=== PATIENT | female | born 1980 | race Hispanic/Latino ===

== ENCOUNTER 2017-01-30 20:11 | Emergency (ER) | payer BC, OTHER ==
[2017-01-30 20:40] VITALS: BP 120/86
[2017-01-30] MEDS ORDERED: ULTRAM PO ONE (20:44)
[2017-01-30] MEDS ORDERED: ULTRAM ONE (20:46)
--- NOTE | 2017-01-30 21:42 | Emergency Department Report ---
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 denies: weakness, numbness, suspects foreign body, heard/felt popping sensat - Related Data Previous Rx's Medication Instructions Recorded Last Taken Type Menthol [Biofreeze] 118 ml TP BID #1 gel..ml. 09/01/15 Unknown Rx traMADol [Ultram 50 MG tab] 50 mg PO Q6HR PRN #21 tablet 09/01/15 Unknown Rx traMADol [Ultram 50 MG tab] 50 mg PO Q6HR PRN #30 tablet 01/30/17 Unknown Rx Allergies Allergy/AdvReac Type Severity Reaction Status Date / Time No Known Allergies Allergy Unverified 09/01/15 18:09 ED Review of Systems ROS: Stated complaint: CRUSH INJURY RT THUMB Other details as noted in HPI Constitutional: denies: chills, fever Eyes: denies: eye pain, eye discharge, vision change ENT: denies: ear pain, throat pain Respiratory: denies: cough, shortness of breath, wheezing Cardiovascular: denies: chest pain, palpitations Endocrine: no symptoms reported Gastrointestinal: denies: abdominal pain, nausea, diarrhea Genitourinary: denies: urgency, dysuria, discharge Musculoskeletal: joint swelling (right thumb distal joint pain swelling ), myalgia. denies: back pain, arthralgia Skin: other (abrasion posterior thumb). denies: rash, lesions Neurological: denies: headache, weakness, paresthesias Psychiatric: denies: anxiety, depression Hematological/Lymphatic: denies: easy bleeding, easy bruising ED Past Medical Hx - Past Medical History Previous Medical History?: No - Surgical History Past Surgical History?: Yes Additional Surgical History: X 2 - Social History Smoking Status: Current Every Day Smoker Substance Use Type: None - Medications Home Medications: Home Medications Medication Instructions Recorded Confirmed Last Taken Type Menthol [Biofreeze] 118 ml TP BID #1 gel..ml. 09/01/15 Unknown Rx traMADol [Ultram 50 MG tab] 50 mg PO Q6HR PRN #21 tablet 09/01/15 Unknown Rx traMADol [Ultram 50 MG tab] 50 mg PO Q6HR PRN #30 tablet 01/30/17 Unknown Rx ED Physical Exam - General Limitations: No Limitations General appearance: alert, in no apparent distress - Head Head exam: Present: atraumatic, normocephalic - Eye Eye exam: Present: normal appearance - ENT ENT exam: Present: mucous membranes moist - Neck Neck exam: Present: normal inspection - Respiratory Respiratory exam: Present: normal lung sounds bilaterally. Absent: respiratory distress - Cardiovascular Cardiovascular Exam: Present: regular rate, normal rhythm. Absent: systolic murmur, diastolic murmur, rubs, gallop - GI/Abdominal GI/Abdominal exam: Present: soft, normal bowel sounds - Rectal Rectal exam: Present: deferred - Extremities Exam Extremities exam: Present: tenderness, joint swelling. Absent: pedal edema, calf tenderness - Expanded Upper Extremity Exam Right Forearm Wrist exam: Present: normal inspection, full ROM Hand Wrist exam: Present: tenderness (right thumb distal joint pain swelling ecchymosis, ), swelling, abrasion, ecchymosis. Absent: laceration, deformity, crepidus, dislocation, erythema, amputation, nail avulsion, subungual hematoma Neuro motor exam: Present: wrist extension intact, thumb opposition intact, thumb IP flexion intact, thumb adduction intact, fingers 2-5 abduction intact Neurosensory exam: Present: 2-point discrimination, radial nerve intact, ulnar nerve intact, median nerve intact Vascular: Present: normal capillary refill, radial pulse, brachial pulse, ulnar pulse. Absent: vascular compromise, Pallo, pulse deficit radial art, pulse deficit ulnar art, pulse deficit brachial art - Back Exam Back exam: Present: normal inspection - Neurological Exam Neurological exam: Present: alert, oriented X3 - Psychiatric Psychiatric exam: Present: normal affect, normal mood - Skin Skin exam: Present: warm, dry, intact, normal color. 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 Ennis ortho tramadol prn pain , pt verbalize agreement and understanding of discharge plan. Critical care attestation.: If time is entered above; I have spent that time in minutes in the direct care of this critically ill patient, excluding procedure time. ED Disposition Clinical Impression: Thumb sprain Qualifiers: Encounter type: initial encounter Sprain of finger site: interphalangeal joint Laterality: right Qualified Code(s): S63.621A - Sprain of interphalangeal joint of right thumb, initial encounter Disposition: TO HOME OR SELFCARE Is pt being admited?: No Does the pt Need Aspirin: No Condition: Good Instructions: Finger Sprain (ED) Prescriptions: traMADol [Ultram 50 MG tab] 50 mg PO Q6HR PRN #30 tablet PRN Reason: Pain Referrals: PRIMARY CAREMD [Primary Care Provider] - 3-5 Days ZIA ENNIS MD [Staff Physician] - 3-5 Days Forms: Work/School Release Form(ED) Time of Disposition: 21:49
--- NOTE | 2017-01-31 07:24 | XRay Report ---
RIGHT HAND RADIOGRAPHS INDICATION: 40 pound impact on right thumb. Pain, swelling. COMPARISON: None similar. FINDINGS: AP, lateral and oblique right hand radiographs demonstrate intact bones, joints and soft tissues. Small cyst may be present in the scaphoid and possibly the lunate, unchanged since August 2015 wrist radiographs. CONCLUSION: No acute right hand radiographic abnormality, as described. Please correlate. Thank you for the opportunity to participate in this patient's care.
== END 2017-01-30 21:55 | disposition home or self-care (01) ==
LOC: ED 20:11
DX: S63.621A Sprain of interphalangeal joint of right thumb, initial encounter (principal); F17.200 Nicotine dependence, unspecified, uncomplicated; X58.XXXA Exposure to other specified factors, initial encounter; Y93.89 Activity, other specified; Y99.8 Other external cause status; Y92.009 Unspecified place in unspecified non-institutional (private) residence as the place of occurrence of the external cause

== ENCOUNTER 2017-05-30 15:49 | Emergency (ER) | payer BC ==
--- NOTE | 2017-05-30 16:26 | Emergency Department Report ---
ED Back Pain/Injury HPI - General Chief Complaint: Back Pain/Injury Stated Complaint: LEFT SIDED BACK PAIN Time Seen by Provider: 05/30/17 16:13 Source: patient Limitations: No Limitations - History of Present Illness Initial Comments: 37-year-old female past medical history none presents with complaint of left- sided flank pain and left-sided rib pain status post mechanical fall at home this morning. 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 Patient complaining of bruising and exquisite pain to her left flank. Patient is awake alert and oriented 3 appears uncomfortable denies shortness of breath nausea or vomiting. States she has some abrasions to her left side. States that turning her trunk is painful. States she has visible bruise on left side flank. Denies any external bleeding. Denies any loss of consciousness associated with fall, reports no dizziness, headache or neck pain. Patient is ambulatory without assistance. Patient is a hospital employee. MD Complaint: back pain (A), back injury, fall -: This morning Place: home Severity: severe Severity scale (0 -10): 8 Quality: sharp, aching Consistency: constant Worsens With: movement Context: fall Associated Symptoms: denies other symptoms - Related Data Previous Rx's Medication Instructions Recorded Last Taken Type Menthol [Biofreeze] 118 ml TP BID #1 gel..ml. 09/01/15 Unknown Rx traMADol [Ultram 50 MG tab] 50 mg PO Q6HR PRN #21 tablet 09/01/15 Unknown Rx traMADol [Ultram 50 MG tab] 50 mg PO Q6HR PRN #30 tablet 01/30/17 Unknown Rx Bacitracin Zinc Oint [Antibiotic 1 applicatio TP BID #1 tube 05/30/17 Unknown Rx Oint] HYDROcodone/APAP 5-325 [[place] 1 each PO Q8H PRN #9 tablet 05/30/17 Unknown Rx 5/325] Ibuprofen [Motrin] 600 mg PO Q8H PRN #30 tablet 05/30/17 Unknown Rx Allergies Allergy/AdvReac Type Severity Reaction Status Date / Time No Known Allergies Allergy Unverified 09/01/15 18:09 ED Review of Systems ROS: Stated complaint: LEFT SIDED BACK PAIN Other details as noted in HPI Constitutional: denies: chills, fever Eyes: denies: eye pain, eye discharge, vision change ENT: denies: ear pain, throat pain Respiratory: denies: cough, shortness of breath, wheezing Cardiovascular: denies: chest pain, palpitations Endocrine: no symptoms reported Gastrointestinal: denies: abdominal pain, nausea, diarrhea Genitourinary: denies: urgency, dysuria, discharge Musculoskeletal: as per HPI. denies: back pain, joint swelling, arthralgia Skin: denies: rash, lesions Neurological: denies: headache, weakness, paresthesias Psychiatric: denies: anxiety, depression Hematological/Lymphatic: denies: easy bleeding, easy bruising ED Past Medical Hx - Past Medical History Previous Medical History?: No - Surgical History Past Surgical History?: Yes Additional Surgical History: X 2 - Social History Smoking Status: Current Every Day Smoker Substance Use Type: None - Medications Home Medications: Home Medications Medication Instructions Recorded Confirmed Last Taken Type Menthol [Biofreeze] 118 ml TP BID #1 gel..ml. 09/01/15 Unknown Rx traMADol [Ultram 50 MG tab] 50 mg PO Q6HR PRN #21 tablet 09/01/15 Unknown Rx traMADol [Ultram 50 MG tab] 50 mg PO Q6HR PRN #30 tablet 01/30/17 Unknown Rx Bacitracin Zinc Oint [Antibiotic 1 applicatio TP BID #1 tube 05/30/17 Unknown Rx Oint] HYDROcodone/APAP 5-325 [[place] 1 each PO Q8H PRN #9 tablet 05/30/17 Unknown Rx 5/325] Ibuprofen [Motrin] 600 mg PO Q8H PRN #30 tablet 05/30/17 Unknown Rx ED Physical Exam - General Limitations: No Limitations General appearance: alert, in no apparent distress - Head Head exam: Present: atraumatic, normocephalic - Eye Eye exam: Present: normal appearance, PERRL, EOMI - ENT ENT exam: Present: mucous membranes moist - Neck Neck exam: Present: normal inspection - Respiratory Respiratory exam: Present: normal lung sounds bilaterally, chest wall tenderness (patient has a left sided chest wall tenderness along the left mid axillary line along costal margin with visible contusion approximately 8-9 cm in length. Pain radiates along the left midaxillary line. No other visible chest wall ecchymosis. Some small superficial abrasions overlying this area.). Absent: respiratory distress - Cardiovascular Cardiovascular Exam: Present: regular rate, normal rhythm. Absent: systolic murmur, diastolic murmur, rubs, gallop - GI/Abdominal GI/Abdominal exam: Present: soft (no anterior abdominal wall tenderness negative tenderness 4 quadrants), normal bowel sounds - Extremities Exam Extremities exam: Present: normal inspection - Back Exam Back exam: Present: normal inspection, full ROM, CVA tenderness (L) (positive left-sided flank tenderness) - Neurological Exam Neurological exam: Present: alert, oriented X3, CN II-XII intact, normal gait - Psychiatric Psychiatric exam: Present: normal affect, normal mood - Skin Skin exam: Present: warm, dry, intact, normal color. Absent: rash ED Course Vital Signs 05/30/17 05/30/17 15:56 19:15 Temperature 98 F Pulse Rate 70 55 L Respiratory 20 16 Rate Blood Pressure 110/85 Blood Pressure 116/75 [Left] O2 Sat by Pulse 97 100 Oximetry ED Medical Decision Making - Lab Data Result diagrams: 05/30/17 16:43 05/30/17 16:43 - Medical Decision Making A/P: left sided chest wall 1-FAST Scan negative at bedside for fluid collection in renal-splenic. Finding reported to Dr. uLgo 2-CT chest and abdomen negative for any internal hemorrhage splenic trauma or rib fractures. Blood work and urinalysis unremarkable 3-case discussed with ED attending also examined patient 4- short course of motrin and [place] when necessary. Critical care attestation.: If time is entered above; I have spent that time in minutes in the direct care of this critically ill patient, excluding procedure time. ED Disposition Clinical Impression: Contusion of rib on left side Qualifiers: Encounter type: initial encounter Qualified Code(s): S20.212A - Contusion of left front wall of thorax, initial encounter Fall with injury Qualifiers: Encounter type: initial encounter Qualified Code(s): W19.XXXA - Unspecified fall, initial encounter Disposition: - TO HOME OR SELFCARE Is pt being admited?: No Does the pt Need Aspirin: No Condition: Stable Instructions: Contusion in Adults (ED) Prescriptions: Bacitracin Zinc Oint [Antibiotic Oint] 1 applicatio TP BID #1 tube HYDROcodone/APAP 5-325 [[place] 5/325] 1 each PO Q8H PRN #9 tablet PRN Reason: Pain Ibuprofen [Motrin] 600 mg PO Q8H PRN #30 tablet PRN Reason: Pain Referrals: PRIMARY CARE,MD [Primary Care Provider] - 3-5 Days Forms: Accompanied Note, Work/School Release Form(ED) Time of Disposition: 19:57
[2017-05-30] MEDS ORDERED: MORPHINE IV ONE ×2 (16:38→19:11)
[2017-05-30] MEDS ORDERED: ZOFRAN IV ONE (16:38)
[2017-05-30] MEDS ORDERED: NACL 0.9% 500 ML 500 ML IV ONE (16:38)
[2017-05-30 16:45] LABS: Bilirubin,Urine NEG (Negative); Blood,Urine NEG (Negative); Ketones,Urine NEG (Negative); Leukocyte Esterase,Urine NEG (Negative); Nitrite,Urine NEG (Negative); Protein,Urine <15 mg/dL mg/dL (Negative); Urobilinogen,Urine < 2.0 mg/dL (<2.0)
[2017-05-30 16:47] LABS: RBC,Urine < 1.0 /HPF (0.0-6.0)
[2017-05-30 17:01] LABS: Basophils % (Auto) 0.4 % (0.0-1.8); Eosinophils % (Auto) 1.8 % (0.0-4.3); Hematocrit 34.9 % (30.3-42.9); Hemoglobin 11.9 gm/dl (10.1-14.3); Mean Corpuscular HGB Conc 34 % (30-34); Mean Corpuscular Hemoglobin 30 pg (28-32); Mean Corpuscular Volume 88 fl (79-97); Platelet Count 242 K/mm3 (140-440); Red Blood Count 3.97 M/mm3 (3.65-5.03); Red Cell Distribution Width 13.3 % (13.2-15.2); White Blood Count 6.5 K/mm3 (4.5-11.0)
[2017-05-30 17:10] LABS: INR 0.94 (0.87-1.13)
[2017-05-30 17:18] LABS: Anion Gap 18 mmol/L; BUN/Creatinine Ratio 19; Blood Urea Nitrogen 17 mg/dL (7-17); Carbon Dioxide 27 mmol/L (22-30); Chloride 100.4 mmol/L (98-107); Glucose 84 mg/dL (65-100); Potassium 3.7 mmol/L (3.6-5.0); Sodium 142 mmol/L (137-145)
[2017-05-30 19:24] VITALS: BP 116/75
--- NOTE | 2017-05-30 19:25 | Cat Scan Report ---
FINAL REPORT PROCEDURE: CT CHEST W CON TECHNIQUE: Computerized axial tomography of the chest was performed during the IV injection of iodinated nonionic contrast. HISTORY: ? left side rib or splenic injury s/p fall COMPARISON: No prior studies are available for comparison. TECHNICAL QUALITY: Satisfactory. FINDINGS: Heart and pericardium: Normal. Thoracic aorta: Normal. Pulmonary vasculature: Normal. Lymph nodes: No enlarged thoracic lymph nodes. Lungs: Normal. Pleural space: No effusion, thickening, or pneumothorax. Musculoskeletal structures: No significant abnormality. Upper abdominal structures: Fatty infiltration liver. Low attenuated probable cyst in the upper liver which can be confirmed by ultrasound if warranted. IMPRESSION: No acute posttraumatic pathology. Specifically no spleen injury or rib fracture
--- NOTE | 2017-05-30 19:31 | Cat Scan Report ---
FINAL REPORT PROCEDURE: CT ABDOMEN PELVIS W CON TECHNIQUE: Computerized axial tomography of the abdomen and pelvis was performed after the IV injection of iodinated nonionic contrast. HISTORY: ? left side rib or splenic injury s/p fall COMPARISON: CT chest today FINDINGS: Visualized lower thorax: No significant abnormality. Liver: Diffuse fatty infiltration liver with small low attenuated lesions likely small cyst left lobe. Spleen: Normal size and attenuation. Gallbladder and biliary system: Normal. Pancreas: Normal. Adrenals: Normal. Kidneys: Normal. GI tract: Normal. Lymph nodes and mesentery: Normal. Vasculature: Normal. Bladder: Normal. Reproductive organs: Heterogeneous uterus with low attenuated cysts in the adnexa Peritoneum: No free fluid. Musculoskeletal structures: No significant abnormality. Other: None. IMPRESSION: No acute posttraumatic pathology. Specifically no splenic injury or rib fracture left lower chest.
== END 2017-05-30 20:11 | disposition home or self-care (01) ==
LOC: ED 15:49
DX: S20.212A Contusion of left front wall of thorax, initial encounter (principal); M54.9 Dorsalgia, unspecified; F17.200 Nicotine dependence, unspecified, uncomplicated; W01.198A Fall on same level from slipping, tripping and stumbling with subsequent striking against other object, initial encounter; Y93.89 Activity, other specified; Y92.89 Other specified places as the place of occurrence of the external cause; Y99.8 Other external cause status
CPT/HCPCS: 36415; 71260; 74177; 80048; 81001; 81025; 85025; 85610; 86850; 86900; 86901; 96361; 96374; 96375; 96376; 99284; J2270; J2405; J7040; Q9967

== ENCOUNTER 2018-09-07 10:21 | Emergency (ER) | payer OTHER, BC ==
[2018-09-07 10:30] VITALS: BP 117/81
[2018-09-07] MEDS ORDERED: IBUPROFEN PO ONE (10:35)
--- NOTE | 2018-09-07 10:40 | Emergency Department Report ---
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 Patient complains of pain on both sides of her knee and just inferior to the patella since the incident. Pain increases with weightbearing Location: Right knee Duration: Constant since yesterday Quality: Pain Severity: Moderate Modifying factors: [see above] Context: [see above] Mode of transportation: [not driving] ED Past Medical Hx - Past Medical History Previous Medical History?: Yes Additional medical history: hypothyroid - Surgical History Past Surgical History?: Yes Additional Surgical History: X 2 - Family History Family history: no significant - Social History Smoking Status: Never Smoker Substance Use Type: None - Medications Home Medications: Home Medications Medication Instructions Recorded Confirmed Last Taken Type Menthol [Biofreeze] 118 ml TP BID #1 gel..ml. 09/01/15 Unknown Rx traMADol [Ultram 50 MG tab] 50 mg PO Q6HR PRN #21 tablet 09/01/15 Unknown Rx traMADol [Ultram 50 MG tab] 50 mg PO Q6HR PRN #30 tablet 01/30/17 Unknown Rx Bacitracin Zinc Oint [Antibiotic 1 applicatio TP BID #1 tube 05/30/17 Unknown Rx Oint] HYDROcodone/APAP 5-325 [[place] 1 each PO Q8H PRN #9 tablet 05/30/17 Unknown Rx 5/325] Ibuprofen [Motrin] 600 mg PO Q8H PRN #30 tablet 05/30/17 Unknown Rx HYDROcodone/APAP 5-325 [[place] 1 each PO Q6HR PRN #10 tablet 09/07/18 Unknown Rx 5/325] Ibuprofen [Motrin 800 MG tab] 800 mg PO Q8HR PRN #20 tablet 09/07/18 Unknown Rx ED Review of Systems ROS: Stated complaint: RT KNEE PAIN Other details as noted in HPI Constitutional: no symptoms reported Respiratory: no symptoms reported Endocrine: no symptoms reported Musculoskeletal: arthralgia Physical Exam - Physical Exam Vital Signs: Vital Signs 09/07/18 10:21 Temperature 98.1 F Pulse Rate 61 Respiratory 20 Rate Blood Pressure 117/81 O2 Sat by Pulse 100 Oximetry Physical Exam: GENERAL: The patient is well-developed well-nourished female sitting on stretcher using cellphone not appearing to be in acute distress. [] HEENT: Normocephalic. Atraumatic. NECK: Trachea midline CHEST/LUNGS: There is no respiratory distress noted. SKIN: There is no rash. There is no edema. There is no diaphoresis. NEURO: The patient is awake, alert, and oriented. The patient is cooperative. The patient has normal speech MUSCULOSKELETAL: There is pain to the medial aspect of the right knee with varus and valgus stress. No laxity of the right knee appreciated. There is no evidence of acute injury. ED Course Vital Signs 09/07/18 10:21 Temperature 98.1 F Pulse Rate 61 Respiratory 20 Rate Blood Pressure 117/81 O2 Sat by Pulse 100 Oximetry ED Medical Decision Making - Radiology Data Radiology results: image reviewed (right knee x-ray) interpreted by me: Right knee x-ray-no acute fracture - Differential Diagnosis knee sprain, meniscus tear, medial collateral ligament injury Critical care attestation.: If time is entered above; I have spent that time in minutes in the direct care of this critically ill patient, excluding procedure time. ED Disposition Clinical Impression: Acute pain of right knee Disposition: DC-01 TO HOME OR SELFCARE Is pt being admited?: No Does the pt Need Aspirin: No Condition: Stable Instructions: Arthralgia (ED) Additional Instructions: Return to the emergency department immediately should you develop worsening symptoms, fever, inability to tolerate food or liquid or any other concerns. Prescriptions: Ibuprofen [Motrin 800 MG tab] 800 mg PO Q8HR PRN #20 tablet PRN Reason: Pain, Moderate (4-6) HYDROcodone/APAP 5-325 [[place] 5/325] 1 each PO Q6HR PRN #10 tablet PRN Reason: Pain Referrals: ZIA ENNIS MD [Staff Physician] - 3-5 Days (Dr. Ennis is an orthopedic surgeon. Please follow up with him for further evaluation) Time of Disposition: 10:55
--- NOTE | 2018-09-07 10:55 | XRay Report ---
RIGHT KNEE, 3 views: History: Pain. The bony architecture is intact without evidence of fracture or dislocation. No significant soft tissue abnormality is seen. IMPRESSION: Normal right knee.
== END 2018-09-07 11:18 | disposition home or self-care (01) ==
LOC: ED 10:21
DX: M25.561 Pain in right knee (principal); E03.9 Hypothyroidism, unspecified
CPT/HCPCS: 99283

== ENCOUNTER 2018-09-30 11:00 | Outpatient (CLI) | payer BC ==
--- NOTE | 2018-09-30 14:27 | Magnetic Resonance Report ---
MR LOWER EXTREMITY JOINT RIGHT WITHOUT CONTRAST History: Pain in right knee. Technique: Multisequence, multiplanar MRI without IV contrast. FINDINGS: The bone marrow signal is within normal limits. No evidence for fracture, osteochondral defect or bone lesion. Intra-articular cartilage appears intact and normal thickness. The medial and lateral menisci are intact. No degeneration or tear. The ACL, PCL, MCL, LCL complex and extensor complex are intact. No significant joint effusion or popliteal cyst. IMPRESSION: Unremarkable MRI of the right knee. No clear explanation for right knee pain.
== END 2018-09-30 11:01 | disposition home or self-care (01) ==
LOC: MRI 11:00
PROVIDERS: ATTEND Orthopaedic Surgery
DX: M25.561 Pain in right knee (principal)
CPT/HCPCS: 73721

== ENCOUNTER 2019-03-12 13:49 | Outpatient (CLI) | payer BC | END 2019-03-12 13:50 | disposition home or self-care (01) | LOC: LAB 13:49 | PROVIDERS: ATTEND Internal Medicine | DX: E03.9 Hypothyroidism, unspecified (principal) | CPT/HCPCS: 36415; 84436; 84443 ==

== ENCOUNTER 2019-05-01 11:28 | Emergency (ER) | payer SELFPAY ==
[2019-05-01] MEDS ORDERED: MORPHINE 4 MG/1 ML INJ IV ONE (12:00)
[2019-05-01] MEDS ORDERED: ONDANSETRON 4 MG/2 ML INJ IV ONE (12:00)
--- NOTE | 2019-05-01 12:06 | Emergency Department Report ---
<MARYANN HENRY - Last Filed: 05/01/19 15:34> ED Fall HPI - General Chief Complaint: Fall Stated Complaint: FALL Time Seen by Provider: 05/01/19 11:59 - Related Data Previous Rx's Medication Instructions Recorded Last Taken Type Menthol [Biofreeze] 118 ml TP BID #1 gel..ml. 09/01/15 Unknown Rx traMADoL [Ultram 50 MG tab] 50 mg PO Q6HR PRN #21 tablet 09/01/15 Unknown Rx traMADoL [Ultram 50 MG tab] 50 mg PO Q6HR PRN #30 tablet 01/30/17 Unknown Rx Bacitracin Zinc Oint [Antibiotic 1 applicatio TP BID #1 tube 05/30/17 Unknown Rx Oint] HYDROcodone/APAP 5-325 [[place] 1 each PO Q8H PRN #9 tablet 05/30/17 Unknown Rx 5/325] Ibuprofen [Motrin] 600 mg PO Q8H PRN #30 tablet 05/30/17 Unknown Rx HYDROcodone/APAP 5-325 [[place] 1 each PO Q6HR PRN #10 tablet 09/07/18 Unknown Rx 5/325] Ibuprofen [Motrin 800 MG tab] 800 mg PO Q8HR PRN #20 tablet 09/07/18 Unknown Rx Ondansetron [Zofran Odt] 4 mg PO Q8HR PRN #14 tab.rapdis 05/01/19 Unknown Rx traMADoL [Ultram 50 MG tab] 50 mg PO Q4HR PRN #14 tablet 05/01/19 Unknown Rx Allergies Allergy/AdvReac Type Severity Reaction Status Date / Time No Known Allergies Allergy Verified 09/07/18 10:29 ED Past Medical Hx - Medications Home Medications: Home Medications Medication Instructions Recorded Confirmed Last Taken Type Menthol [Biofreeze] 118 ml TP BID #1 gel..ml. 09/01/15 Unknown Rx traMADoL [Ultram 50 MG tab] 50 mg PO Q6HR PRN #21 tablet 09/01/15 Unknown Rx traMADoL [Ultram 50 MG tab] 50 mg PO Q6HR PRN #30 tablet 01/30/17 Unknown Rx Bacitracin Zinc Oint [Antibiotic 1 applicatio TP BID #1 tube 05/30/17 Unknown Rx Oint] HYDROcodone/APAP 5-325 [[place] 1 each PO Q8H PRN #9 tablet 05/30/17 Unknown Rx 5/325] Ibuprofen [Motrin] 600 mg PO Q8H PRN #30 tablet 05/30/17 Unknown Rx HYDROcodone/APAP 5-325 [[place] 1 each PO Q6HR PRN #10 tablet 09/07/18 Unknown Rx 5/325] Ibuprofen [Motrin 800 MG tab] 800 mg PO Q8HR PRN #20 tablet 09/07/18 Unknown Rx Ondansetron [Zofran Odt] 4 mg PO Q8HR PRN #14 tab.rapdis 05/01/19 Unknown Rx traMADoL [Ultram 50 MG tab] 50 mg PO Q4HR PRN #14 tablet 05/01/19 Unknown Rx ED Course - Reevaluation(s) Reevaluation #1: 05/01/19 15:34 Resting comfortably in stretcher and in no acute distress. Currently playing on a cellular phone. CT scan abdomen pelvis negative for acute disease. Vital signs, laboratory studies, imaging studies reviewed Patient counseled that she'll likely be sore over the next few days. Suitable for discharge at this point in time. ED Medical Decision Making - Lab Data Result diagrams: 05/01/19 12:45 05/01/19 12:45 Vital Signs 05/01/19 05/01/19 11:32 12:06 Temperature 98.3 F 97.8 F Pulse Rate 84 65 Respiratory 18 17 Rate Blood Pressure 136/86 Blood Pressure 118/78 [Left] O2 Sat by Pulse 97 96 Oximetry Lab Results 05/01/19 05/01/19 05/01/19 Range/Units 12:45 12:45 12:45 WBC 6.2 (4.5-11.0) K/mm3 RBC 4.83 (3.65-5.03) M/mm3 Hgb 13.4 (10.1-14.3) gm/dl Hct 39.9 (30.3-42.9) % MCV 83 (79-97) fl MCH 28 (28-32) pg MCHC 34 (30-34) % RDW 13.7 (13.2-15.2) % Plt Count 258 (140-440) K/mm3 Lymph % (Auto) 27.1 (13.4-35.0) % [place] % (Auto) 10.7 H (0.0-7.3) % Eos % (Auto) 3.6 (0.0-4.3) % Baso % (Auto) 0.5 (0.0-1.8) % Lymph # 1.7 (1.2-5.4) K/mm3 [place] # 0.7 (0.0-0.8) K/mm3 Eos # 0.2 (0.0-0.4) K/mm3 Baso # 0.0 (0.0-0.1) K/mm3 Seg Neutrophils % 58.1 (40.0-70.0) % Seg Neutrophils # 3.6 (1.8-7.7) K/mm3 Sodium 141 (137-145) mmol/L Potassium 3.8 (3.6-5.0) mmol/L Chloride 106.2 (98-107) mmol/L Carbon Dioxide 19 L (22-30) mmol/L Anion Gap 20 mmol/L BUN 19 H (7-17) mg/dL Creatinine 0.6 L (0.7-1.2) mg/dL Estimated GFR > 60 ml/min BUN/Creatinine Ratio 32 % Glucose 108 H (65-100) mg/dL Calcium 9.5 (8.4-10.2) mg/dL Total Bilirubin 0.20 (0.1-1.2) mg/dL Direct Bilirubin < 0.2 (0-0.2) mg/dL Indirect Bilirubin 0.0 mg/dL AST 15 (5-40) units/L ALT 10 (7-56) units/L Alkaline Phosphatase 70 (35-129) units/L Total Protein 7.3 (6.3-8.2) g/dL Albumin 4.5 (3.9-5) g/dL Albumin/Globulin Ratio 1.6 % HCG, Qual Negative (Negative) - Radiology Data Radiology results: report reviewed, image reviewed ED Disposition Clinical Impression: Abdominal contusion, Fall, Chest wall contusion Disposition: TO HOME OR SELFCARE Condition: Stable Instructions: Contusion in Adults (ED), Fall Prevention (ED) Prescriptions: traMADoL [Ultram 50 MG tab] 50 mg PO Q4HR PRN #14 tablet PRN Reason: Pain Ondansetron [Zofran Odt] 4 mg PO Q8HR PRN #14 tab.rapdis PRN Reason: Nausea And Vomiting Referrals: PRIMARY CARE, [Primary Care Provider] - 3-5 Days Forms: Work/School Release Form(ED) <BARRETT LIN - Last Filed: 05/02/19 17:56> ED Fall HPI - General Source: patient Mode of arrival: Wheelchair - History of Present Illness Initial Comments: Patient is 39 years old female with no significant past medical history except for hypothyroidism. Patient presented to the ER from medical floor for evaluation after a fall. 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 Patient complaining off right lower chest and upper abdominal pain. Patient denied any head injury, neck injury. She also denied any loss of consciousness. No other complaint. Complaint: fall -: This morning Fall From: standing When Fall Occurred: just prior to arrival Fall Witnessed: yes, by bystander Place Fall Occurred: work Loss of Consciousness: none Prolonged Down Time?: no Symptoms Prior to Fall: none Location: chest, abdomen Severity: moderate Severity scale (0 -10): 5 Quality: sharp Context: other ED Review of Systems ROS: Stated complaint: FALL Other details as noted in HPI Comment: All other systems reviewed and negative Constitutional: denies: chills, fever Respiratory: denies: cough, shortness of breath, SOB with exertion Cardiovascular: chest pain. denies: palpitations, dyspnea on exertion, orthopnea Gastrointestinal: abdominal pain. denies: nausea, vomiting, diarrhea, constipation, hematemesis, melena, hematochezia Genitourinary: denies: dysuria Musculoskeletal: denies: back pain Neurological: denies: headache, weakness, numbness, paresthesias, confusion ED Past Medical Hx - Past Medical History Additional medical history: hypothyroid - Surgical History Additional Surgical History: X 2 - Social History Smoking Status: Never Smoker Substance Use Type: None ED Physical Exam - General Limitations: No Limitations General appearance: alert, in no apparent distress - Head Head exam: Present: atraumatic, normocephalic, normal inspection - Eye Eye exam: Present: normal appearance, PERRL - ENT ENT exam: Present: normal exam, normal orophraynx, mucous membranes moist - Neck Neck exam: Present: normal inspection, full ROM. Absent: tenderness, meningismus, lymphadenopathy, thyromegaly - Respiratory Respiratory exam: Present: normal lung sounds bilaterally, chest wall tenderness (right lower chest tenderness). Absent: respiratory distress, wheezes, rales, rhonchi, accessory muscle use, decreased breath sounds, prolonged expiratory - Cardiovascular Cardiovascular Exam: Present: regular rate, normal rhythm, normal heart sounds - GI/Abdominal GI/Abdominal exam: Present: soft, tenderness (right upper quadrant tenderness), normal bowel sounds. Absent: distended, guarding, rebound, rigid, organomegaly, mass, bruit, pulsatile mass, hernia - Extremities Exam Extremities exam: Present: normal inspection, full ROM, normal capillary refill. Absent: pedal edema, calf tenderness - Back Exam Back exam: Present: normal inspection, full ROM. Absent: CVA tenderness (R), CVA tenderness (L), muscle spasm, paraspinal tenderness, vertebral tenderness - Neurological Exam Neurological exam: Present: alert, oriented X3, CN II-XII intact, normal gait, reflexes normal. Absent: motor sensory deficit - Skin Skin exam: Present: warm, intact, normal color ED Course Vital Signs 05/01/19 05/01/19 05/01/19 11:32 12:06 14:00 Temperature 98.3 F 97.8 F Pulse Rate 84 65 59 L Respiratory 18 17 18 Rate Blood Pressure 136/86 Blood Pressure 118/78 120/79 [Left] O2 Sat by Pulse 97 96 100 Oximetry 05/01/19 05/01/19 15:00 16:00 Temperature Pulse Rate 58 L 60 Respiratory 18 17 Rate Blood Pressure Blood Pressure 105/67 115/68 [Left] O2 Sat by Pulse 98 99 Oximetry ED Medical Decision Making - Lab Data Result diagrams: 05/01/19 12:45 05/01/19 12:45 Critical care attestation.: If time is entered above; I have spent that time in minutes in the direct care o f this critically ill patient, excluding procedure time. ED Disposition Is pt being admited?: No
[2019-05-01 13:22] LABS: Basophils % (Auto) 0.5 % (0.0-1.8); Eosinophils # (Auto) 0.2 K/mm3 (0.0-0.4); Eosinophils % (Auto) 3.6 % (0.0-4.3); Hematocrit 39.9 % (30.3-42.9); Hemoglobin 13.4 gm/dl (10.1-14.3); Lymphocytes # (Auto) 1.7 K/mm3 (1.2-5.4); Lymphocytes % (Auto) 27.1 % (13.4-35.0); Mean Corpuscular HGB Conc 34 % (30-34); Mean Corpuscular Volume 83 fl (79-97); Monocytes # (Auto) 0.7 K/mm3 (0.0-0.8); Monocytes % (Auto) 10.7 % (0.0-7.3); Platelet Count 258 K/mm3 (140-440); Red Blood Count 4.83 M/mm3 (3.65-5.03); Red Cell Distribution Width 13.7 % (13.2-15.2)
[2019-05-01 13:39] LABS: Alanine Aminotransferase 10 units/L (7-56); Albumin 4.5 g/dL (3.9-5); BUN/Creatinine Ratio 32; Blood Urea Nitrogen 19 mg/dL (7-17); Calcium 9.5 mg/dL (8.4-10.2); Hemolysis Index 7
[2019-05-01 13:45] LABS: Bilirubin,Direct < 0.2 mg/dL (0-0.2)
--- NOTE | 2019-05-01 14:24 | XRay Report ---
RIGHT RIBS 5 VIEWS INDICATION / CLINICAL INFORMATION: CHEST PAIN,S/P FALL. COMPARISON: None available. FINDINGS: RIBS: No acute, displaced fracture or other acute abnormality. LUNGS: No acute finding. No pneumothorax. Signer Name: Miah Ortiz MD Signed: 05/01/2019 2:19 PM Workstation Name: [id number]
--- NOTE | 2019-05-01 15:32 | Cat Scan Report ---
CT ABDOMEN AND PELVIS WITH CONTRAST INDICATION: RUQ PAIN, S/P FALL. COMPARISON: CT abdomen and pelvis with contrast from 05/30/2017. TECHNIQUE: Axial, coronal and sagittal CT imaging of the abdomen and pelvis was performed after inje ction of 100 mL Omnipaque [address] scans at this location are performed using CT dose re duction for ALARA by means of automated exposure control. FINDINGS: LOWER CHEST: No significant abnormality. LIVER: There is a subcentimeter probable cyst located laterally along the hepatic dome. No additional significant abnormality is seen. BILIARY: No significant abnormality. PANCREAS: No significant abnormality. SPLEEN: No significant abnormality. ADRENALS: No significant abnormality. KIDNEYS AND URETERS: No significant abnormality. GI TRACT: No significant abnormality of the stomach, small bowel or colon. Unremarkable appendix. PERITONEUM: A small amount of free fluid is seen along the pelvis and is likely physiologic. No free air. No fluid collection. LYMPH NODES: No significant adenopathy. VASCULATURE: No significant abnormality. URINARY BLADDER: No significant abnormality. REPRODUCTIVE ORGANS: No significant abnormality. ADDITIONAL FINDINGS: None. SKELETAL SYSTEM: No significant abnormality. IMPRESSION: No acute abnormality of the abdomen or pelvis. Signer Name: Albreto Castaneda MD Signed: 05/01/2019 3:28 PM Workstation Name: [id number]
[2019-05-01 16:13] VITALS: BP 115/68
== END 2019-05-01 16:14 | disposition home or self-care (01) ==
LOC: ED 11:28
DX: S30.1XXA Contusion of abdominal wall, initial encounter (principal); S20.211A Contusion of right front wall of thorax, initial encounter; E03.9 Hypothyroidism, unspecified; Z98.890 Other specified postprocedural states; Z79.899 Other long term (current) drug therapy; W19.XXXA Unspecified fall, initial encounter; Y93.89 Activity, other specified; Y92.89 Other specified places as the place of occurrence of the external cause; Y99.8 Other external cause status
CPT/HCPCS: 36415; 71101; 74177; 80048; 80076; 84703; 85025; 96374; 96375; 99284; J2270; J2405; Q9967

== ENCOUNTER 2019-10-28 16:35 | Emergency (ER) | payer SELFPAY ==
[2019-10-28 16:44] VITALS: BP 123/88
[2019-10-28] MEDS ORDERED: KETOROLAC 60 MG/2 ML INJ IM ONE (16:53)
[2019-10-28] MEDS ORDERED: predniSONE 20 MG TAB PO ONE (16:53)
--- NOTE | 2019-10-28 17:14 | Emergency Department Report ---
ED Upper Extremity Inj HPI - General Chief Complaint: Extremity Injury, Upper Stated Complaint: WORKPLACE INJURY, RT. SHOULDER Time Seen by Provider: 10/28/19 16:49 Source: patient Mode of arrival: Ambulatory Limitations: No Limitations - History of Present Illness Initial Comments: This is a 39-year-old female nontoxic, well nourished in appearance, no acute signs of distress presents to the ED with c/o of right shoulder pain. 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 Patient denies any trauma. Patient denies any numbness, tingling, fever, chills, nausea, vomiting, chest pain, shortness of breath, headache, stiff neck. Patient denies any joint swelling or joint redness. Patient agrees to some decreased range of motion due to pain. Patient denies any allergies or significant past medical history. MD Complaint: Injury to:: right, shoulder -: This afternoon Other Extremity Injury: Shoulder: Right Other Injuries: none Place: work Severity scale (0 -10): 8 Improves With: immobilization Worsens With: movement of extremity Associated Symptoms: denies other symptoms. denies: weakness, numbness, neck pain, suspects foreign body, nausea/vomiting, heard/felt popping sensat - Related Data Previous Rx's Medication Instructions Recorded Last Taken Type Menthol [Biofreeze] 118 ml TP BID #1 gel..ml. 09/01/15 Unknown Rx traMADoL [Ultram 50 MG tab] 50 mg PO Q6HR PRN #21 tablet 09/01/15 Unknown Rx traMADoL [Ultram 50 MG tab] 50 mg PO Q6HR PRN #30 tablet 01/30/17 Unknown Rx Bacitracin Zinc Oint [Antibiotic 1 applicatio TP BID #1 tube 05/30/17 Unknown Rx Oint] HYDROcodone/APAP 5-325 [[place] 1 each PO Q8H PRN #9 tablet 05/30/17 Unknown Rx 5/325] Ibuprofen [Motrin] 600 mg PO Q8H PRN #30 tablet 05/30/17 Unknown Rx HYDROcodone/APAP 5-325 [[place] 1 each PO Q6HR PRN #10 tablet 09/07/18 Unknown Rx 5/325] Ibuprofen [Motrin 800 MG tab] 800 mg PO Q8HR PRN #20 tablet 09/07/18 Unknown Rx Ondansetron [Zofran Odt] 4 mg PO Q8HR PRN #14 tab.rapdis 05/01/19 Unknown Rx traMADoL [Ultram 50 MG tab] 50 mg PO Q4HR PRN #14 tablet 05/01/19 Unknown Rx Cyclobenzaprine [Flexeril] 10 mg PO QHS PRN #10 tablet 10/28/19 Unknown Rx Naproxen 500 mg PO Q12H PRN #20 tablet 10/28/19 Unknown Rx Allergies Allergy/AdvReac Type Severity Reaction Status Date / Time No Known Allergies Allergy Verified 09/07/18 10:29 ED Review of Systems ROS: Stated complaint: WORKPLACE INJURY, RT. SHOULDER Other details as noted in HPI Constitutional: denies: chills, fever Eyes: denies: eye pain, eye discharge, vision change ENT: denies: ear pain, throat pain Respiratory: denies: cough, shortness of breath, wheezing Cardiovascular: denies: chest pain, palpitations Endocrine: no symptoms reported Gastrointestinal: denies: abdominal pain, nausea, diarrhea Genitourinary: denies: urgency, dysuria, discharge Musculoskeletal: arthralgia. denies: back pain, joint swelling Skin: denies: rash, lesions Neurological: denies: headache, weakness, paresthesias Psychiatric: denies: anxiety, depression Hematological/Lymphatic: denies: easy bleeding, easy bruising ED Past Medical Hx - Past Medical History Previous Medical History?: Yes Hx Psychiatric Treatment: Yes (Depression) Additional medical history: hypothyroid - Surgical History Past Surgical History?: Yes Additional Surgical History: X 2 - Social History Smoking Status: Former Smoker Substance Use Type: None - Medications Home Medications: Home Medications Medication Instructions Recorded Confirmed Last Taken Type Menthol [Biofreeze] 118 ml TP BID #1 gel..ml. 09/01/15 Unknown Rx traMADoL [Ultram 50 MG tab] 50 mg PO Q6HR PRN #21 tablet 09/01/15 Unknown Rx traMADoL [Ultram 50 MG tab] 50 mg PO Q6HR PRN #30 tablet 01/30/17 Unknown Rx Bacitracin Zinc Oint [Antibiotic 1 applicatio TP BID #1 tube 05/30/17 Unknown Rx Oint] HYDROcodone/APAP 5-325 [[place] 1 each PO Q8H PRN #9 tablet 05/30/17 Unknown Rx 5/325] Ibuprofen [Motrin] 600 mg PO Q8H PRN #30 tablet 05/30/17 Unknown Rx HYDROcodone/APAP 5-325 [[place] 1 each PO Q6HR PRN #10 tablet 09/07/18 Unknown Rx 5/325] Ibuprofen [Motrin 800 MG tab] 800 mg PO Q8HR PRN #20 tablet 09/07/18 Unknown Rx Ondansetron [Zofran Odt] 4 mg PO Q8HR PRN #14 tab.rapdis 05/01/19 Unknown Rx traMADoL [Ultram 50 MG tab] 50 mg PO Q4HR PRN #14 tablet 05/01/19 Unknown Rx Cyclobenzaprine [Flexeril] 10 mg PO QHS PRN #10 tablet 10/28/19 Unknown Rx Naproxen 500 mg PO Q12H PRN #20 tablet 10/28/19 Unknown Rx ED Physical Exam - General Limitations: No Limitations General appearance: alert, in no apparent distress - Head Head exam: Present: atraumatic, normocephalic - Extremities Exam Extremities exam: Present: normal inspection, full ROM, tenderness, normal capillary refill. Absent: joint swelling - Expanded Upper Extremity Exam Right General: Present: normal inspection Shoulder Exam: Present: normal inspection, full ROM, tenderness. Absent: swelling, abrasion, laceration, ecchymosis, deformity, crepidus, dislocation, erythema, tenderness over AC joint Upper Arm exam: Present: normal inspection, full ROM. Absent: tenderness, swelling Elbow exam: Present: normal inspection, full ROM. Absent: tenderness, swelling Forearm Wrist exam: Present: normal inspection, full ROM. Absent: tenderness, swelling Hand Wrist exam: Present: normal inspection, full ROM. Absent: tenderness, swelling Vascular: Present: vascular compromise, normal capillary refill - Back Exam Back exam: Present: normal inspection, full ROM. Absent: tenderness, CVA tenderness (R), CVA tenderness (L), muscle spasm, paraspinal tenderness, vertebral tenderness, rash noted - Neurological Exam Neurological exam: Present: alert, oriented X3, normal gait - Psychiatric Psychiatric exam: Present: normal affect, normal mood - Skin Skin exam: Present: warm, dry, intact, normal color. Absent: rash ED Course Vital Signs 10/28/19 10/28/19 16:43 17:27 Temperature 98.7 F Pulse Rate 76 Respiratory 20 18 Rate Blood Pressure 123/88 O2 Sat by Pulse 95 Oximetry - Reevaluation(s) Reevaluation #1: 10/28/19 17:14 Patient is speaking in full sentences with no signs of distress noted. ED Medical Decision Making - Medical Decision Making This is a 39-year-old female that presents with right shoulder strain. Patient is stable and was examined by me. I referred patient to an orthopedic doctor for further evaluation for possible MRI. X-ray has been obtained and dictated by the radiologist. Patient is notified of the x-ray report with noted by the patient. No joint swelling. No ecchymosis. no joint redness or swelling. Not warm to touch. No signs of cellulites present. Patient was instructed to RICE therapy. Patient received Toradol and prednisone for pain which stated that her symptoms is subsiding. Patient is discharged with N aproxen. At time of discharge, the patient does not seem toxic or ill in appearance. No acute signs of distress noted. Patient agrees to discharge treatment plan of care. No further questions noted by the patient. Critical care attestation.: If time is entered above; I have spent that time in minutes in the direct care of this critically ill patient, excluding procedure time. ED Disposition Clinical Impression: Right shoulder strain Qualifiers: Encounter type: initial encounter Qualified Code(s): S46.911A - Strain of unspecified muscle, fascia and tendon at shoulder and upper arm level, right arm, initial encounter Disposition: - TO HOME OR SELFCARE Is pt being admited?: No Does the pt Need Aspirin: No Condition: Stable Instructions: RICE Therapy (ED) Additional Instructions: Follow-up with a orthopedic doctor in 3-5 days or if symptoms worsen and continue return to emergency room as soon as possible. Take naproxen and Flexeril as prescribed. Do not operate heavy machinery while taking Flexeril due to sedation Prescriptions: Cyclobenzaprine [Flexeril] 10 mg PO QHS PRN #10 tablet PRN Reason: Muscle Spasm Naproxen 500 mg PO Q12H PRN #20 tablet PRN Reason: Pain , Severe (7-10) Referrals: GILLES NOVAK MD [Primary Care Provider] - 3-5 Days ZIA PINEDA MD [Staff Physician] - 3-5 Days [facility] [Provider Group] - 3-5 Days Forms: Work/School Release Form(ED)
--- NOTE | 2019-10-28 17:22 | XRay Report ---
XR shoulder 2+V RT INDICATION / CLINICAL INFORMATION: right shoulder pain. COMPARISON: None available. FINDINGS: BONES/JOINT(S): No acute fracture or subluxation. No significant degenerative changes. No focal bone lesions. SOFT TISSUES: No significant abnormality. ADDITIONAL FINDINGS: None. Signer Name: Kai Chris MD Signed: 10/28/2019 5:17 PM Workstation Name: [email or web address]
== END 2019-10-28 18:01 | disposition home or self-care (01) ==
LOC: ED 16:35
DX: S46.811A Strain of other muscles, fascia and tendons at shoulder and upper arm level, right arm, initial encounter (principal); F32.9 Major depressive disorder, single episode, unspecified; Z98.890 Other specified postprocedural states; Z87.891 Personal history of nicotine dependence; Z79.899 Other long term (current) drug therapy; X58.XXXA Exposure to other specified factors, initial encounter; Y93.89 Activity, other specified; Y92.89 Other specified places as the place of occurrence of the external cause; Y99.8 Other external cause status
CPT/HCPCS: 73030; 96372; 99283; J1885; J7512

== ENCOUNTER 2020-02-01 16:58 | Emergency (ER) | payer SELFPAY ==
[2020-02-01 17:03] VITALS: BP 121/84
--- NOTE | 2020-02-01 17:18 | Emergency Department Report ---
ED Fall HPI - General Chief Complaint: Extremity Injury, Lower Stated Complaint: FALL Time Seen by Provider: 02/01/20 17:08 Source: patient Mode of arrival: Ambulatory - History of Present Illness Initial Comments: This is a pleasant 39-year-old female presents emerged department chief complaint of left knee, ankle and foot pain after a ground-level fall today while in a grocery store. She reports she was walking when her foot got caught around a piece of rope and this caused her to fall forward. She denies hitting her head or losing consciousness. Denies any other injuries. She denies any symptoms prior to the fall such as dizziness, weakness, headache, chest pain or any other associated symptoms. She denies any known past medical history, current medication use or known allergies to medications. - Related Data Previous Rx's Medication Instructions Recorded Last Taken Type Menthol [Biofreeze] 118 ml TP BID #1 gel..ml. 09/01/15 Unknown Rx traMADoL [Ultram 50 MG tab] 50 mg PO Q6HR PRN #21 tablet 09/01/15 Unknown Rx traMADoL [Ultram 50 MG tab] 50 mg PO Q6HR PRN #30 tablet 01/30/17 Unknown Rx Bacitracin Zinc Oint [Antibiotic 1 applicatio TP BID #1 tube 05/30/17 Unknown Rx Oint] HYDROcodone/APAP 5-325 [Hale 1 each PO Q8H PRN #9 tablet 05/30/17 Unknown Rx 5/325] Ibuprofen [Motrin] 600 mg PO Q8H PRN #30 tablet 05/30/17 Unknown Rx HYDROcodone/APAP 5-325 [Hale 1 each PO Q6HR PRN #10 tablet 09/07/18 Unknown Rx 5/325] Ibuprofen [Motrin 800 MG tab] 800 mg PO Q8HR PRN #20 tablet 09/07/18 Unknown Rx Ondansetron [Zofran Odt] 4 mg PO Q8HR PRN #14 tab.rapdis 05/01/19 Unknown Rx traMADoL [Ultram 50 MG tab] 50 mg PO Q4HR PRN #14 tablet 05/01/19 Unknown Rx Cyclobenzaprine [Flexeril] 10 mg PO QHS PRN #10 tablet 10/28/19 Unknown Rx Naproxen 500 mg PO Q12H PRN #20 tablet 10/28/19 Unknown Rx Naproxen [Naprosyn] 500 mg PO BID #20 tablet 02/01/20 Unknown Rx Allergies Allergy/AdvReac Type Severity Reaction Status Date / Time No Known Allergies Allergy Verified 09/07/18 10:29 ED Review of Systems ROS: Stated complaint: FALL Other details as noted in HPI Comment: All other systems reviewed and negative Constitutional: denies: chills, fever Eyes: denies: eye pain, eye discharge, vision change ENT: denies: ear pain, throat pain Respiratory: denies: cough, shortness of breath, wheezing Cardiovascular: denies: chest pain, palpitations Endocrine: no symptoms reported Gastrointestinal: denies: abdominal pain, nausea, diarrhea Genitourinary: denies: urgency, dysuria, discharge Musculoskeletal: as per HPI, arthralgia. denies: back pain, joint swelling Skin: denies: rash, lesions Neurological: denies: headache, weakness, paresthesias Psychiatric: denies: anxiety, depression Hematological/Lymphatic: denies: easy bleeding, easy bruising ED Past Medical Hx - Past Medical History Previous Medical History?: Yes Hx Psychiatric Treatment: Yes (Depression) Additional medical history: hypothyroid - Surgical History Past Surgical History?: Yes Additional Surgical History: X 2 - Social History Smoking Status: Never Smoker - Medications Home Medications: Home Medications Medication Instructions Recorded Confirmed Last Taken Type Menthol [Biofreeze] 118 ml TP BID #1 gel..ml. 09/01/15 Unknown Rx traMADoL [Ultram 50 MG tab] 50 mg PO Q6HR PRN #21 tablet 09/01/15 Unknown Rx traMADoL [Ultram 50 MG tab] 50 mg PO Q6HR PRN #30 tablet 01/30/17 Unknown Rx Bacitracin Zinc Oint [Antibiotic 1 applicatio TP BID #1 tube 05/30/17 Unknown Rx Oint] HYDROcodone/APAP 5-325 [Hale 1 each PO Q8H PRN #9 tablet 05/30/17 Unknown Rx 5/325] Ibuprofen [Motrin] 600 mg PO Q8H PRN #30 tablet 05/30/17 Unknown Rx HYDROcodone/APAP 5-325 [Hale 1 each PO Q6HR PRN #10 tablet 09/07/18 Unknown Rx 5/325] Ibuprofen [Motrin 800 MG tab] 800 mg PO Q8HR PRN #20 tablet 09/07/18 Unknown Rx Ondansetron [Zofran Odt] 4 mg PO Q8HR PRN #14 tab.rapdis 05/01/19 Unknown Rx traMADoL [Ultram 50 MG tab] 50 mg PO Q4HR PRN #14 tablet 05/01/19 Unknown Rx Cyclobenzaprine [Flexeril] 10 mg PO QHS PRN #10 tablet 10/28/19 Unknown Rx Naproxen 500 mg PO Q12H PRN #20 tablet 10/28/19 Unknown Rx Naproxen [Naprosyn] 500 mg PO BID #20 tablet 02/01/20 Unknown Rx ED Physical Exam - General Limitations: No Limitations General appearance: alert, in no apparent distress - Head Head exam: Present: atraumatic, normocephalic - Eye Eye exam: Present: normal appearance, PERRL Pupils: Present: normal accommodation - ENT ENT exam: Present: normal exam, normal orophraynx, mucous membranes moist - Neck Neck exam: Present: normal inspection, full ROM. Absent: tenderness, meningismus - Respiratory Respiratory exam: Present: normal lung sounds bilaterally. Absent: respiratory distress, wheezes, rales, rhonchi, stridor - Cardiovascular Cardiovascular Exam: Present: regular rate, normal rhythm, normal heart sounds. Absent: systolic murmur, diastolic murmur, rubs, gallop - GI/Abdominal GI/Abdominal exam: Present: soft, normal bowel sounds. Absent: distended, tenderness, guarding, rebound, rigid - Extremities Exam Extremities exam: Present: normal inspection, full ROM, tenderness - Back Exam Back exam: Present: normal inspection, full ROM. Absent: tenderness, CVA tenderness (R), CVA tenderness (L) - Neurological Exam Neurological exam: Present: alert, oriented X3, normal gait (Tenderness palpation to the anterior left knee with a 2 cm area of ecchymosis anteriorly, tenderness to the lateral left ankle and to the fourth toe.) - Psychiatric Psychiatric exam: Present: normal affect, normal mood - Skin Skin exam: Present: warm, dry, intact, normal color. Absent: rash ED Course Vital Signs 02/01/20 17:00 Temperature 98.1 F Pulse Rate 94 H Respiratory 16 Rate Blood Pressure 121/84 O2 Sat by Pulse 97 Oximetry ED Medical Decision Making - Radiology Data Radiology results: report reviewed XRay Report Signed Patient: KALIE PETERSON MR#: [id number] : 1980 Acct:[id number] Age/Sex: 39 / F ADM Date: 02/01/20 Loc: ED Attending Dr: Ordering Physician: GILBERTO ARREDONDO Date of Service: 02/01/20 Procedure(s): XR tibia fibula 2V LT Accession Number(s): [id number] cc: GILBERTO ARREDONDO Fluoro Time In Minutes: LEFT TIBIA AND FIBULA 4 VIEWS INDICATION / CLINICAL INFORMATION: pain, fall. COMPARISON: None available. FINDINGS: No significant skeletal abnormality Signer Name: Gallo Sykes MD FACR Signed: 02/01/2020 6:03 PM Workstation Name: [id number] Transcribed By: MS Dictated By: Gallo Sykes MD Electronically Authenticated By: Gallo Sykes MD Signed Date/Time: 02/01/20 180 XRay Report Signed Patient: KALIE PETERSON MR#: [id number] : 1980 Acct:[id number] Age/Sex: 39 / F ADM Date: 02/01/20 Loc: ED Attending Dr: Ordering Physician: GILBERTO ARREDONDO Date of Service: 02/01/20 Procedure(s): XR foot 2V LT Accession Number(s): [id number] cc: GILBERTO ARREDONDO Fluoro Time In Minutes: LEFT FOOT 2 VIEWS INDICATION / CLINICAL INFORMATION: pain, fall. COMPARISON: None available. FINDINGS: No significant skeletal abnormality Signer Name: Gallo Sykes MD FACR Signed: 02/01/2020 6:04 PM Workstation Name: [id number] Transcribed By: MS Dictated By: Gallo Sykes MD Electronically Authenticated By: Gallo Sykes MD Signed Date/Time: 02/01/20 180 - Medical Decision Making X-rays were unremarkable with no acute fractures or dislocations per radiology. Recommended rest, ice, compression, elevation and outpatient follow-up with orthopedics as needed. Patient verbalized understanding instructions and all of her questions were answered. - Differential Diagnosis fracture, contusion, strain, sprain Critical care attestation.: If time is entered above; I have spent that time in minutes in the direct care of this critically ill patient, excluding procedure time. ED Disposition Clinical Impression: Contusion of left knee Qualifiers: Encounter type: initial encounter Qualified Code(s): S80.02XA - Contusion of left knee, initial encounter Contusion of left foot Qualifiers: Encounter type: initial encounter Qualified Code(s): S90.32XA - Contusion of left foot, initial encounter Disposition: DC-01 TO HOME OR SELFCARE Is pt being admited?: No Condition: Stable Instructions: Contusion in Adults (ED) Prescriptions: Naproxen [Naprosyn] 500 mg PO BID #20 tablet Referrals: ZIA PINEDA MD [Staff Physician] - 3-5 Days Time of Disposition: 18:18
--- NOTE | 2020-02-01 18:08 | XRay Report ---
LEFT TIBIA AND FIBULA 4 VIEWS INDICATION / CLINICAL INFORMATION: pain, fall. COMPARISON: None available. FINDINGS: No significant skeletal abnormality Signer Name: Gallo Sykes MD FACR Signed: 02/01/2020 6:03 PM Workstation Name: [id number]
--- NOTE | 2020-02-01 18:08 | XRay Report ---
LEFT FOOT 2 VIEWS INDICATION / CLINICAL INFORMATION: pain, fall. COMPARISON: None available. FINDINGS: No significant skeletal abnormality Signer Name: Gallo Sykes MD FACR Signed: 02/01/2020 6:04 PM Workstation Name: [id number]
== END 2020-02-01 19:19 | disposition home or self-care (01) ==
LOC: ED 16:58
DX: S80.02XA Contusion of left knee, initial encounter (principal); S90.32XA Contusion of left foot, initial encounter; E03.9 Hypothyroidism, unspecified; F32.9 Major depressive disorder, single episode, unspecified; Z98.890 Other specified postprocedural states; Z79.899 Other long term (current) drug therapy; W17.89XA Other fall from one level to another, initial encounter; Y93.89 Activity, other specified; Y92.89 Other specified places as the place of occurrence of the external cause; Y99.8 Other external cause status

== ENCOUNTER 2020-03-10 20:14 | Emergency (ER) | payer BC ==
[2020-03-10 20:29] VITALS: BP 113/71
--- NOTE | 2020-03-10 21:40 | Cat Scan Report ---
CT head/brain wo con INDICATION / CLINICAL INFORMATION: 40 years Female; head injury. TECHNIQUE: Routine CT head without contrast. All CT scans at this location are performed using CT dos e reduction for ALARA by means of automated exposure control. COMPARISON: None. FINDINGS: BRAIN / INTRACRANIAL CONTENTS: There is moderate cerebellar atrophy which is out of portion to the mi ld degree of cerebral atrophy for a patient this age. However, the ventricular system is appropriate in size and configuration. The brain parenchyma appears to demonstrate appropriate attenuation. There is no clear CT evidence of acute intracranial hemorrhage or significant mass effect. ORBITS: No significant abnormality of visualized orbits. SINUSES / MASTOIDS: No significant abnormality in the visualized paranasal sinuses or mastoid air monica ls. CRANIOCERVICAL JUNCTION: No significant abnormality. ADDITIONAL FINDINGS: None. IMPRESSION: 1. There is moderate cerebellar atrophy. 2. There is no CT evidence of acute intracranial process. Signer Name: Derek Houston MD Signed: 03/10/2020 9:35 PM Workstation Name: [id number]
[2020-03-10] MEDS ORDERED: BUTALB/ACETAMINOPHEN/CAFFEINE TAB PO ONE (23:35)
[2020-03-10] MEDS ORDERED: diphenhydrAMINE 50 MG/ML VIAL IV ONE (23:35)
[2020-03-10] MEDS ORDERED: METOCLOPRAMIDE 10 MG/2 ML INJ IV ONE (23:35)
--- NOTE | 2020-03-11 00:02 | Cat Scan Report ---
CT cervical spine wo con INDICATION: fall - pain. TECHNIQUE: All CT scans at this location are performed using CT dose reduction for ALARA by means of automated e xposure control. COMPARISON: None available. FINDINGS: Mild spondylosis from C4 to C6. No fracture or subluxation. IMPRESSION: 1. No acute abnormalities. Signer Name: Tom Holder MD Signed: 03/10/2020 11:58 PM Workstation Name: [id number]
--- NOTE | 2020-03-11 01:16 | Emergency Department Report ---
ED Fall HPI - General Chief Complaint: Head Injury Stated Complaint: FELL,HIT BACK OF HEAD IN DRIVEWAY Source: patient Mode of arrival: Ambulatory - History of Present Illness Initial Comments: Patient is a 40-year-old white female with a history of hypothyroidism, anxiety and depression who presents to the ED with complaint of acute onset persistent severe headache in the occipital scalp and posterior neck pain after she tripped over the leash of her dog and fell down backwards on the concrete pavement hitting her head against the concrete pavement about 6 hours ago. Patient states that the headache has been persistent and that she has also had persistent nausea with photophobia since the incident occurred. Patient denies loss of consciousness, dizziness, lightheadedness, chest pain, shortness of breath, vision loss, hearing loss, altered mental status, insomnia, lack of appetite, vomiting or numbness and tingling or weakness of upper and lower extremities bilaterally, low back pain or abdominal pain and hematuria. MD Complaint: fall, other (head injury with headache and neck pain) -: Sudden, hour(s) (6) Fall From: standing When Fall Occurred: 4-6 hours [employer] Fall Witnessed: yes, by family Place Fall Occurred: home Loss of Consciousness: none Prolonged Down Time?: no Symptoms Prior to Fall: none Location: head, neck Severity: severe Severity scale (0 -10): 8 Quality: sharp, aching Context: tripped/slipped Associated Symptoms: headache, neck pain. denies: denies, numbness, weakness, chest paint, shortness of breath, abdominal pain, lightheaded, vertigo, confusion - Related Data Previous Rx's Medication Instructions Recorded Last Taken Type Menthol [Biofreeze] 118 ml TP BID #1 gel..ml. 09/01/15 Unknown Rx traMADoL [Ultram 50 MG tab] 50 mg PO Q6HR PRN #21 tablet 09/01/15 Unknown Rx traMADoL [Ultram 50 MG tab] 50 mg PO Q6HR PRN #30 tablet 01/30/17 Unknown Rx Bacitracin Zinc Oint [Antibiotic 1 applicatio TP BID #1 tube 05/30/17 Unknown Rx Oint] HYDROcodone/APAP 5-325 [Stanton 1 each PO Q8H PRN #9 tablet 05/30/17 Unknown Rx 5/325] Ibuprofen [Motrin] 600 mg PO Q8H PRN #30 tablet 05/30/17 Unknown Rx HYDROcodone/APAP 5-325 [[place] 1 each PO Q6HR PRN #10 tablet 09/07/18 Unknown Rx 5/325] Ibuprofen [Motrin 800 MG tab] 800 mg PO Q8HR PRN #20 tablet 09/07/18 Unknown Rx Ondansetron [Zofran Odt] 4 mg PO Q8HR PRN #14 tab.rapdis 05/01/19 Unknown Rx traMADoL [Ultram 50 MG tab] 50 mg PO Q4HR PRN #14 tablet 05/01/19 Unknown Rx Cyclobenzaprine [Flexeril] 10 mg PO QHS PRN #10 tablet 10/28/19 Unknown Rx Naproxen 500 mg PO Q12H PRN #20 tablet 10/28/19 Unknown Rx Naproxen [Naprosyn] 500 mg PO BID #20 tablet 02/01/20 Unknown Rx Butalb/Acetamin/Caff 50-325-40 1 - 2 tab PO Q6HR PRN #12 tab 03/11/20 Unknown Rx [Fioricet 50-325-40] Ibuprofen [Motrin] 800 mg PO Q8HR PRN #30 tablet 03/11/20 Unknown Rx Ondansetron [Zofran Odt] 4 mg PO Q6HR PRN #15 tab.rapdis 03/11/20 Unknown Rx Allergies Allergy/AdvReac Type Severity Reaction Status Date / Time No Known Allergies Allergy Verified 09/07/18 10:29 ED Review of Systems ROS: Stated complaint: FELL,HIT BACK OF HEAD IN DRIVEWAY Other details as noted in HPI Constitutional: denies: chills, fever Eyes: denies: eye pain, eye discharge, vision change ENT: denies: ear pain, throat pain Respiratory: denies: cough, shortness of breath, wheezing Cardiovascular: denies: chest pain, palpitations Endocrine: no symptoms reported Gastrointestinal: nausea. denies: abdominal pain, diarrhea Genitourinary: denies: urgency, dysuria, discharge Musculoskeletal: arthralgia (Neck pain). denies: back pain, joint swelling Skin: denies: rash, lesions Neurological: headache. denies: weakness, paresthesias Psychiatric: denies: anxiety, depression Hematological/Lymphatic: denies: easy bleeding, easy bruising ED Past Medical Hx - Past Medical History Previous Medical History?: Yes Hx Psychiatric Treatment: Yes (Depression) Additional medical history: hypothyroid - Surgical History Past Surgical History?: Yes Additional Surgical History: X 2 - Social History Smoking Status: Never Smoker Substance Use Type: None - Medications Home Medications: Home Medications Medication Instructions Recorded Confirmed Last Taken Type Menthol [Biofreeze] 118 ml TP BID #1 gel..ml. 09/01/15 Unknown Rx traMADoL [Ultram 50 MG tab] 50 mg PO Q6HR PRN #21 tablet 09/01/15 Unknown Rx traMADoL [Ultram 50 MG tab] 50 mg PO Q6HR PRN #30 tablet 01/30/17 Unknown Rx Bacitracin Zinc Oint [Antibiotic 1 applicatio TP BID #1 tube 05/30/17 Unknown Rx Oint] HYDROcodone/APAP 5-325 [Stanton 1 each PO Q8H PRN #9 tablet 05/30/17 Unknown Rx 5/325] Ibuprofen [Motrin] 600 mg PO Q8H PRN #30 tablet 05/30/17 Unknown Rx HYDROcodone/APAP 5-325 [Stanton 1 each PO Q6HR PRN #10 tablet 09/07/18 Unknown Rx 5/325] Ibuprofen [Motrin 800 MG tab] 800 mg PO Q8HR PRN #20 tablet 09/07/18 Unknown Rx Ondansetron [Zofran Odt] 4 mg PO Q8HR PRN #14 tab.rapdis 05/01/19 Unknown Rx traMADoL [Ultram 50 MG tab] 50 mg PO Q4HR PRN #14 tablet 05/01/19 Unknown Rx Cyclobenzaprine [Flexeril] 10 mg PO QHS PRN #10 tablet 10/28/19 Unknown Rx Naproxen 500 mg PO Q12H PRN #20 tablet 10/28/19 Unknown Rx Naproxen [Naprosyn] 500 mg PO BID #20 tablet 02/01/20 Unknown Rx Butalb/Acetamin/Caff 50-325-40 1 - 2 tab PO Q6HR PRN #12 tab 03/11/20 Unknown Rx [Fioricet 50-325-40] Ibuprofen [Motrin] 800 mg PO Q8HR PRN #30 tablet 03/11/20 Unknown Rx Ondansetron [Zofran Odt] 4 mg PO Q6HR PRN #15 tab.rapdis 03/11/20 Unknown Rx ED Physical Exam - General Limitations: No Limitations General appearance: alert, in no apparent distress - Head Head exam: Present: other (Palpable occipital scalp tenderness) - Eye Eye exam: Present: normal appearance, PERRL Pupils: Present: normal accommodation - ENT ENT exam: Present: normal exam, normal orophraynx, mucous membranes moist, TM's normal bilaterally, normal external ear exam - Neck Neck exam: Present: normal inspection, tenderness (Palpable mild cervical paraspinal musculoskeletal tenderness), full ROM. Absent: meningismus - Respiratory Respiratory exam: Present: normal lung sounds bilaterally. Absent: respiratory distress, wheezes, rales, stridor, chest wall tenderness, accessory muscle use, decreased breath sounds, prolonged expiratory - Cardiovascular Cardiovascular Exam: Present: regular rate, normal rhythm, normal heart sounds. Absent: systolic murmur, diastolic murmur, rubs, gallop - GI/Abdominal GI/Abdominal exam: Present: soft, normal bowel sounds. Absent: tenderness, guarding, hyperactive bowel sounds, hypoactive bowel sounds, organomegaly - Extremities Exam Extremities exam: Present: normal inspection, full ROM, normal capillary refill - Back Exam Back exam: Present: normal inspection, full ROM. Absent: tenderness, CVA te nderness (R), CVA tenderness (L), muscle spasm, paraspinal tenderness, vertebral tenderness - Neurological Exam Neurological exam: Present: alert, oriented X3, CN II-XII intact, normal gait, reflexes normal - Psychiatric Psychiatric exam: Present: normal affect, normal mood - Skin Skin exam: Present: warm, dry, intact, normal color. Absent: rash ED Course Vital Signs 03/10/20 20:20 Temperature 98.5 F Pulse Rate 73 Respiratory 18 Rate Blood Pressure 113/71 O2 Sat by Pulse 97 Oximetry ED Medical Decision Making - Radiology Data Radiology results: report reviewed, image reviewed Findings [facility] [address] [place] [address] Cat Scan Report Signed Patient: KALIE PETERSON MR#: [id number] : 1980 Acct:[id number] Age/Sex: 40 / F ADM Date: 03/10/20 Loc: ED Attending Dr: Ordering Physician: GILBERTO FARMER Date of Service: 03/10/20 Procedure(s): CT cervical spine wo con Accession Number(s): [id number] cc: GILBERTO FARMER CT cervical spine wo con INDICATION: fall - pain. TECHNIQUE: All CT scans at this location are performed using CT dose reduction for ALARA by means of automated exposure control. COMPARISON: None available. FINDINGS: Mild spondylosis from C4 to C6. No fracture or subluxation. IMPRESSION: 1. No acute abnormalities. Signer Name: Tom Holder MD Signed: 03/10/2020 11:58 PM Workstation Name: [id number] Transcribed By: TM Dictated By: Tom Holder MD Electronically Authenticated By: Tom Holder MD Signed Date/Time: 03/10/202357 DD/ 55 TD/TT: Findings [facility] [address] [place] [address] Cat Scan Report Signed Patient: KALIE PETERSON MR#: [id number] : 1980 Acct:[id number] Age/Sex: 40 / F ADM Date: 03/10/20 Loc: ED Attending Dr: Ordering Physician: GILBERTO ALAS Date of Service: 03/10/20 Procedure(s): CT head/brain wo con Accession Number(s): [id number] cc: GILBERTO ALAS CT head/brain wo con INDICATION / CLINICAL INFORMATION: 40 years Female; head injury. TECHNIQUE: Routine CT head without contrast. All CT scans at this location are performed using CT dose reduction for ALARA by means of automated exposure control. COMPARISON: None. FINDINGS: BRAIN / INTRACRANIAL CONTENTS: There is moderate cerebellar atrophy which is out of portion to the mild degree of cerebral atrophy for a patient this age. However, the ventricular system is appropriate in size and configuration. The brain parenchyma appears to demonstrate appropriate attenuation. There is no clear CT evidence of acute intracranial hemorrhage or significant mass effect. ORBITS: No significant abnormality of visualized orbits. SINUSES / MASTOIDS: No significant abnormality in the visualized paranasal sinuses or mastoid air cells. CRANIOCERVICAL JUNCTION: No significant abnormality. ADDITIONAL FINDINGS: None. IMPRESSION: 1. There is moderate cerebellar atrophy. 2. There is no CT evidence of acute intracranial process. Signer Name: Derek Houston MD Signed: 03/10/2020 9:35 PM Workstation Name: [id number] Transcribed By: MR Dictated By: Derek Houston MD Electronically Authenticated By: Derek Houston MD Signed Date/Time: 03/10/202134 DD/ 31 TD/TT: - Medical Decision Making This is a 40-year-old white female with a history of hypothyroidism, anxiety and depression who presents to the ED with complaint of acute onset persistent severe headache in the occipital scalp and posterior neck pain after she tripped over the leash of her dog and fell down backwards on the concrete pavement hitting her head against the concrete pavement about 6 hours ago. Patient states that the headache has been persistent and that she has also had persistent nausea with photophobia since the incident occurred. In the ED, patient is alert and oriented x3 and is not in distress but appears to be in pain. Patient was treated for pain in the ED. The head CT scan without contrast showed no acute intracranial abnormalities. The C-spine CT scan without contrast showed no acute cervical disc fractures or subluxations. On reevaluation, patient's pain resolved with medications. Patient will discharge home on pain medications and antiemetics and was advised to follow-up with her primary care physician in 3 to 5 days for reevaluation. Patient was also advised return to the ED immediately if her symptoms get worse. - Differential Diagnosis Migraine headache; concussion; subarachnoid hemorrhage; cervical sprain Critical care attestation.: If time is entered above; I have spent that time in minutes in the direct care of this critically ill patient, excluding procedure time. ED Disposition Clinical Impression: Acute post-traumatic headache, not intractable, Cervical paraspinal muscle spasm Contusion of scalp Qualifiers: Encounter type: initial encounter Qualified Code(s): S00.03XA - Contusion of scalp, initial encounter Concussion Qualifiers: Encounter type: initial encounter Loss of consciousness presence/duration: without LOC Qualified Code(s): S06.0X0A - Concussion without loss of consciousness, initial encounter Disposition: TO HOME OR SELFCARE Is pt being admited?: No Does the pt Need Aspirin: No Condition: Stable Instructions: Concussion (ED), Acute Headache (ED), Cervical Sprain (ED) Additional Instructions: The head CT scan without contrast showed no acute intracranial abnormalities or hemorrhage. C-spine CT scan without contrast showed no acute fractures or subluxations of the cervical spine. Therefore take medications with food, drink plenty of fluids and follow-up with your primary care physician in 3 to 5 days for reevaluation. Return to the ED immediately if symptoms get worse. Prescriptions: Butalb/Acetamin/Caff 50-325-40 [Fioricet 50-325-40] 1 - 2 tab PO Q6HR PRN #12 tab PRN Reason: Headache Ibuprofen [Motrin] 800 mg PO Q8HR PRN #30 tablet PRN Reason: Pain , Severe (7-10) Ondansetron [Zofran Odt] 4 mg PO Q6HR PRN #15 tab.rapdis PRN Reason: Nausea Referrals: ANANDA PHELAN MD [Staff Physician] - 3-5 Days Forms: Work/School Release Form(ED) Time of Disposition: 01:20 Print Language: GIBRALTARIAN
== END 2020-03-11 01:35 | disposition home or self-care (01) ==
LOC: ED 20:14
DX: S06.0X0A Concussion without loss of consciousness, initial encounter (principal); S00.03XA Contusion of scalp, initial encounter; M62.838 Other muscle spasm; G44.319 Acute post-traumatic headache, not intractable; F32.9 Major depressive disorder, single episode, unspecified; E03.9 Hypothyroidism, unspecified; Z79.899 Other long term (current) drug therapy; Z98.890 Other specified postprocedural states; W18.30XA Fall on same level, unspecified, initial encounter; Y93.89 Activity, other specified; Y92.009 Unspecified place in unspecified non-institutional (private) residence as the place of occurrence of the external cause; Y99.8 Other external cause status
CPT/HCPCS: 70450; 72125; 96374; 96375; 99283; J1200; J2765

== ENCOUNTER 2020-03-15 17:04 | Emergency (ER) | payer BC ==
[2020-03-15] MEDS ORDERED: SODIUM CHLORIDE 0.9% 1000 ML 1,000 ML IV ONE (19:23)
[2020-03-15] MEDS ORDERED: ONDANSETRON 4 MG/2 ML INJ IV ONE (19:23)
[2020-03-15] MEDS ORDERED: MORPHINE 4 MG/1 ML INJ IV ONE (19:23)
[2020-03-15] MEDS ORDERED: FAMOTIDINE 20 MG/2 ML INJ IV ONE (19:24)
[2020-03-15 21:40] LABS: Basophils % (Auto) 0.3 % (0.0-1.8); Eosinophils # (Auto) 0.1 K/mm3 (0.0-0.4); Eosinophils % (Auto) 1.5 % (0.0-4.3); Lymphocytes # (Auto) 1.9 K/mm3 (1.2-5.4); Lymphocytes % (Auto) 25.1 % (13.4-35.0); Mean Corpuscular HGB Conc 34 % (30-34); Mean Corpuscular Volume 85 fl (79-97); Monocytes # (Auto) 0.5 K/mm3 (0.0-0.8); Monocytes % (Auto) 6.9 % (0.0-7.3); Platelet Count 297 K/mm3 (140-440); Red Blood Count 4.45 M/mm3 (3.65-5.03); Red Cell Distribution Width 12.9 % (13.2-15.2)
[2020-03-15 21:45] LABS: Alanine Aminotransferase 12 units/L (7-56); Albumin 4.5 g/dL (3.9-5); BUN/Creatinine Ratio 23; Blood Urea Nitrogen 18 mg/dL (7-17); Calcium 9.3 mg/dL (8.4-10.2); Hemolysis Index 12
--- NOTE | 2020-03-15 22:23 | Cat Scan Report ---
CT ABDOMEN AND PELVIS WITH CONTRAST INDICATION / CLINICAL INFORMATION: Generalized abdominal pain and bloating after fall. TECHNIQUE: Axial CT images were obtained through the abdomen and pelvis after 100 cc Omnipaque [address] scans at this location are performed using CT dose reduction for ALARA by means of automated exposure control. COMPARISON: CT abdomen and pelvis with contrast from 05/01/2019. FINDINGS: LOWER CHEST: No significant abnormality. LIVER: Stable subcentimeter right hepatic lobe cyst. No other significant abnormality. GALLBLADDER: No significant abnormality. BILE DUCTS: No significant abnormality. PANCREAS: No significant abnormality. SPLEEN: No significant abnormality. ADRENALS: No significant abnormality. RIGHT KIDNEY / URETER: No significant abnormality. LEFT KIDNEY / URETER: No significant abnormality. STOMACH / SMALL BOWEL: No significant abnormality. COLON: No significant abnormality. APPENDIX: No significant abnormality. PERITONEUM: No free fluid. No free air. No fluid collection. LYMPH NODES: No significant adenopathy. AORTA / ARTERIES: No significant abnormality. IVC / VEINS: No significant abnormality. URINARY BLADDER: No significant abnormality. REPRODUCTIVE ORGANS: No significant abnormality. ADDITIONAL FINDINGS: None. SKELETAL SYSTEM: No significant abnormality. IMPRESSION: No acute abnormality of the abdomen or pelvis. Signer Name: Alberto Castaneda MD Signed: 03/15/2020 10:18 PM Workstation Name: [id number]
--- NOTE | 2020-03-15 23:26 | Emergency Department Report ---
ED Fall HPI - General Chief Complaint: Fall Stated Complaint: HEAD INJURY/NAUSEA/HEADACHE Time Seen by Provider: 03/15/20 17:19 Source: patient Mode of arrival: Ambulatory - History of Present Illness Initial Comments: Patient is a 40-year-old white female with a history of anxiety and depression who presents to the ED with persistent severe headache, nausea and diffuse abdominal pain after she got tripped by her own dog leash about 6 days ago and fell down backwards hitting her head on a concrete pavement. Patient was initially evaluated for the same about 6 days ago and the initial head CT scan without contrast showed no acute intracranial abnormalities or hemorrhage. Patient was discharged home on medications for headache but states that she did not have this medication filled and that the headache has been persistent and severe with nausea. Patient denies dizziness, syncope, loss of consciousness, seizures, chest pain, shortness of breath, vomiting, numbness and tingling or weakness of upper and lower extremities bilaterally or low back pain. MD Complaint: fall, other (nausea, abdominal pain; Headache) -: Sudden, days(s) (6) Fall From: standing When Fall Occurred: other (6 days ago) Fall Witnessed: yes, by family Place Fall Occurred: home Loss of Consciousness: none Prolonged Down Time?: no Symptoms Prior to Fall: none Location: head, abdomen Severity: severe Severity scale (0 -10): 8 Quality: sharp, aching Context: tripped/slipped Associated Symptoms: denies, headache. denies: neck pain, numbness, weakness, chest paint, shortness of breath, abdominal pain, hematuria, unable to walk, lightheaded, vertigo, confusion, other - Related Data Previous Rx's Medication Instructions Recorded Last Taken Type Menthol [Biofreeze] 118 ml TP BID #1 gel..ml. 09/01/15 Unknown Rx traMADoL [Ultram 50 MG tab] 50 mg PO Q6HR PRN #21 tablet 09/01/15 Unknown Rx traMADoL [Ultram 50 MG tab] 50 mg PO Q6HR PRN #30 tablet 01/30/17 Unknown Rx Bacitracin Zinc Oint [Antibiotic 1 applicatio TP BID #1 tube 05/30/17 Unknown Rx Oint] HYDROcodone/APAP 5-325 [[place] 1 each PO Q8H PRN #9 tablet 05/30/17 Unknown Rx 5/325] Ibuprofen [Motrin] 600 mg PO Q8H PRN #30 tablet 05/30/17 Unknown Rx HYDROcodone/APAP 5-325 [[place] 1 each PO Q6HR PRN #10 tablet 09/07/18 Unknown Rx 5/325] Ondansetron [Zofran Odt] 4 mg PO Q8HR PRN #14 tab.rapdis 05/01/19 Unknown Rx traMADoL [Ultram 50 MG tab] 50 mg PO Q4HR PRN #14 tablet 05/01/19 Unknown Rx Naproxen 500 mg PO Q12H PRN #20 tablet 10/28/19 Unknown Rx Naproxen [Naprosyn] 500 mg PO BID #20 tablet 02/01/20 Unknown Rx Ibuprofen [Motrin] 800 mg PO Q8HR PRN #30 tablet 03/11/20 Unknown Rx Butalb/Acetamin/Caff 50-325-40 1 - 2 tab PO Q6HR PRN #15 tab 03/15/20 Unknown Rx [Fioricet 50-325-40] Cyclobenzaprine [Flexeril 10 MG 10 mg PO QHS PRN #10 tablet 03/15/20 Unknown Rx TAB] Ibuprofen [Motrin 800 MG tab] 800 mg PO Q8HR PRN #30 tablet 03/15/20 Unknown Rx Ondansetron [Zofran ODT TAB] 4 mg PO Q6HR PRN #20 tab.rapdis 03/15/20 Unknown Rx Allergies Allergy/AdvReac Type Severity Reaction Status Date / Time No Known Allergies Allergy Verified 09/07/18 10:29 ED Review of Systems ROS: Stated complaint: HEAD INJURY/NAUSEA/HEADACHE Other details as noted in HPI Constitutional: denies: chills, fever Eyes: denies: eye pain, eye discharge, vision change ENT: denies: ear pain, throat pain Respiratory: denies: cough, shortness of breath, wheezing Cardiovascular: denies: chest pain, palpitations Endocrine: no symptoms reported Gastrointestinal: abdominal pain, nausea, vomiting. denies: diarrhea Genitourinary: denies: urgency, dysuria, discharge Musculoskeletal: denies: back pain, joint swelling, arthralgia Skin: denies: rash, lesions Neurological: headache. denies: weakness, paresthesias Psychiatric: denies: anxiety, depression Hematological/Lymphatic: denies: easy bleeding, easy bruising ED Past Medical Hx - Past Medical History Previous Medical History?: Yes Hx Psychiatric Treatment: Yes (Depression) Additional medical history: hypothyroid - Surgical History Past Surgical History?: Yes Additional Surgical History: X 2 - Social History Smoking Status: Former Smoker Substance Use Type: None - Medications Home Medications: Home Medications Medication Instructions Recorded Confirmed Last Taken Type Menthol [Biofreeze] 118 ml TP BID #1 gel..ml. 09/01/15 Unknown Rx traMADoL [Ultram 50 MG tab] 50 mg PO Q6HR PRN #21 tablet 09/01/15 Unknown Rx traMADoL [Ultram 50 MG tab] 50 mg PO Q6HR PRN #30 tablet 01/30/17 Unknown Rx Bacitracin Zinc Oint [Antibiotic 1 applicatio TP BID #1 tube 05/30/17 Unknown Rx Oint] HYDROcodone/APAP 5-325 [[place] 1 each PO Q8H PRN #9 tablet 05/30/17 Unknown Rx 5/325] Ibuprofen [Motrin] 600 mg PO Q8H PRN #30 tablet 05/30/17 Unknown Rx HYDROcodone/APAP 5-325 [[place] 1 each PO Q6HR PRN #10 tablet 09/07/18 Unknown Rx 5/325] Ondansetron [Zofran Odt] 4 mg PO Q8HR PRN #14 tab.rapdis 05/01/19 Unknown Rx traMADoL [Ultram 50 MG tab] 50 mg PO Q4HR PRN #14 tablet 05/01/19 Unknown Rx Naproxen 500 mg PO Q12H PRN #20 tablet 10/28/19 Unknown Rx Naproxen [Naprosyn] 500 mg PO BID #20 tablet 02/01/20 Unknown Rx Ibuprofen [Motrin] 800 mg PO Q8HR PRN #30 tablet 03/11/20 Unknown Rx Butalb/Acetamin/Caff 50-325-40 1 - 2 tab PO Q6HR PRN #15 tab 03/15/20 Unknown Rx [Fioricet 50-325-40] Cyclobenzaprine [Flexeril 10 MG 10 mg PO QHS PRN #10 tablet 03/15/20 Unknown Rx TAB] Ibuprofen [Motrin 800 MG tab] 800 mg PO Q8HR PRN #30 tablet 03/15/20 Unknown Rx Ondansetron [Zofran ODT TAB] 4 mg PO Q6HR PRN #20 tab.rapdis 03/15/20 Unknown Rx ED Physical Exam - General Limitations: No Limitations General appearance: alert, in no apparent distress - Head Head exam: Present: atraumatic, normocephalic, normal inspection - Eye Eye exam: Present: normal appearance, PERRL, EOMI Pupils: Present: normal accommodation - ENT ENT exam: Present: normal exam, normal orophraynx, mucous membranes moist, TM's normal bilaterally, normal external ear exam - Neck Neck exam: Present: normal inspection, full ROM - Respiratory Respiratory exam: Present: normal lung sounds bilaterally. Absent: respiratory distress, wheezes, rales, stridor, chest wall tenderness, accessory muscle use, decreased breath sounds - Cardiovascular Cardiovascular Exam: Present: regular rate, normal rhythm, normal heart sounds. Absent: systolic murmur, diastolic murmur, rubs, gallop - GI/Abdominal GI/Abdominal exam: Present: soft, tenderness (Palpable diffuse mild abdominal muscle tenderness), normal bowel sounds. Absent: guarding, rebound, hyperactive bowel sounds, hypoactive bowel sounds, organomegaly - Extremities Exam Extremities exam: Present: normal inspection, full ROM, normal capillary refill - Back Exam Back exam: Present: normal inspection, full ROM. Absent: tenderness, CVA tenderness (R), CVA tenderness (L), muscle spasm, paraspinal tenderness, vertebral tenderness - Neurological Exam Neurological exam: Present: alert, oriented X3, CN II-XII intact, normal gait, reflexes normal - Psychiatric Psychiatric exam: Present: normal affect, normal mood - Skin Skin exam: Present: warm, dry, intact, normal color. Absent: rash ED Course Vital Signs 03/15/20 23:55 Pulse Rate 56 L Respiratory 16 Rate Blood Pressure 124/79 [Right] O2 Sat by Pulse 99 Oximetry ED Medical Decision Making - Lab Data Result diagrams: 03/15/20 19:43 03/15/20 19:43 - Radiology Data Radiology results: report reviewed, image reviewed Findings [facility] [address] [place] [address] Cat Scan Report Signed Patient: KALIE PETERSON MR#: [id number] : 1980 Acct:[id number] Age/Sex: 40 / F ADM Date: 03/15/20 Loc: ED Attending Dr: Ordering Physician: GILBERTO FARMER Date of Service: 03/15/20 Procedure(s): CT abdomen pelvis w con Accession Number(s): [id number] cc: GILBERTO FARMER CT ABDOMEN AND PELVIS WITH CONTRAST INDICATION / CLINICAL INFORMATION: Generalized abdominal pain and bloating after fall. TECHNIQUE: Axial CT images were obtained through the abdomen and pelvis after 100 cc Omnipaque [address] scans at this location are performed using CT dose reduction for ALARA by means of automated exposure control. COMPARISON: CT abdomen and pelvis with contrast from 05/01/2019. FINDINGS: LOWER CHEST: No significant abnormality. LIVER: Stable subcentimeter right hepatic lobe cyst. No other significant abnormality. GALLBLADDER: No significant abnormality. BILE DUCTS: No significant abnormality. PANCREAS: No significant abnormality. SPLEEN: No significant abnormality. ADRENALS: No significant abnormality. RIGHT KIDNEY / URETER: No significant abnormality. LEFT KIDNEY / URETER: No significant abnormality. STOMACH / SMALL BOWEL: No significant abnormality. COLON: No significant abnormality. APPENDIX: No significant abnormality. PERITONEUM: No free fluid. No free air. No fluid collection. LYMPH NODES: No significant adenopathy. AORTA / ARTERIES: No significant abnormality. IVC / VEINS: No significant abnormality. URINARY BLADDER: No significant abnormality. REPRODUCTIVE ORGANS: No significant abnormality. ADDITIONAL FINDINGS: None. SKELETAL SYSTEM: No significant abnormality. IMPRESSION: No acute abnormality of the abdomen or pelvis. Signer Name: Alberto Castaneda MD Signed: 03/15/2020 10:18 PM Workstation Name: [id number] Transcribed By: [place] Dictated By: Alberto Castaneda MD Electronically Authenticated By: Alberto Castaneda MD Signed Date/Time: 03/15/202217 DD/ 14 TD/TT: - Medical Decision Making This is a 40-year-old white female with a history of anxiety and depression who presents to the ED with persistent severe headache, nausea and diffuse abdominal pain after she got tripped by her own dog leash about 6 days ago and fell down backwards hitting her head on a concrete pavement. Patient was initially evaluated for the same about 6 days ago and the initial head CT scan without contrast showed no acute intracranial abnormalities or hemorrhage. Patient was discharged home on medications for headache but states that she did not have this medication filled and that the headache has been persistent and severe with nausea. In the ED, patient is alert and oriented x3 and is not in distress but appears to be in pain. Lab test results were reviewed and are all nonactionable. Abdomen pelvis CT scan with contrast showed no acute abnormalities. Patient was treated for pain and also given antiemetics. On reevaluation, patient pain resolved as well as nausea. Patient felt better and was discharged home on medications. Patient was advised to follow-up with her primary care physician in 5 to 7 days for reevaluation or return to the ED immediately if symptoms get worse. - Differential Diagnosis postconcussion syndrome; headache; muscle strain; dehydration Critical care attestation.: If time is entered above; I have spent that time in minutes in the direct care of this critically ill patient, excluding procedure time. ED Disposition Clinical Impression: Acute post-traumatic headache, not intractable, Post-concussion headache, Nausea and vomiting in adult patient Abdominal muscle strain Qualifiers: Encounter type: initial encounter Qualified Code(s): S39.011A - Strain of muscle, fascia and tendon of abdomen, initial encounter Disposition: DC- TO HOME OR SELFCARE Is pt being admited?: No Does the pt Need Aspirin: No Condition: Stable Instructions: Muscle Strain (ED), Acute Headache (ED), Acute Nausea and Vomiting (ED), Post Concussion Syndrome (ED) Additional Instructions: The abdomen pelvis CT scan with contrast shows no acute abnormalities. Lab test results showed no abnormalities. Therefore, take medications withf ood, drink plenty of fluids and follow up with your Primary Care Physician in 5-7 days for reevaluation. Return to the ED immediately if symptoms get worse. Prescriptions: Cyclobenzaprine [Flexeril 10 MG TAB] 10 mg PO QHS PRN #10 tablet PRN Reason: Muscle Spasm Butalb/Acetamin/Caff 50-325-40 [Fioricet 50-325-40] 1 - 2 tab PO Q6HR PRN #15 tab PRN Reason: Headache Ibuprofen [Motrin 800 MG tab] 800 mg PO Q8HR PRN #30 tablet PRN Reason: Pain, Moderate (4-6) Ondansetron [Zofran ODT TAB] 4 mg PO Q6HR PRN #20 tab.rapdis PRN Reason: Nausea Referrals: [facility] [Provider Group] - 3-5 Days Forms: Work/School Release Form(ED) Time of Disposition: 23:25 Print Language: NEPALI
[2020-03-16 04:19] VITALS: BP 124/79
== END 2020-03-15 23:55 | disposition home or self-care (01) ==
LOC: ED 17:04
DX: S39.011A Strain of muscle, fascia and tendon of abdomen, initial encounter (principal); S06.0X9A Concussion with loss of consciousness of unspecified duration, initial encounter; F32.89 Other specified depressive episodes; E05.00 Thyrotoxicosis with diffuse goiter without thyrotoxic crisis or storm; Z79.899 Other long term (current) drug therapy; Z98.890 Other specified postprocedural states
CPT/HCPCS: 36415; 74177; 80053; 85025; 96361; 96374; 96375; 99284; J2270; J2405; J7030; Q9967

== ENCOUNTER 2020-03-30 16:03 | Emergency (ER) | payer BC ==
[2020-03-30 16:30] VITALS: BP 114/76
[2020-03-30] MEDS ORDERED: IBUPROFEN 800 MG TAB PO ONE (16:38)
--- NOTE | 2020-03-30 17:06 | XRay Report ---
RIGHT WRIST 4 VIEWS INDICATION / CLINICAL INFORMATION: wrist pain. COMPARISON: None available. FINDINGS: A small cyst is seen in the scaphoid. No other significant skeletal abnormality is identified. Signer Name: Gallo Sykes MD FACSandra Signed: 03/30/2020 5:01 PM Workstation Name: [id number]
--- NOTE | 2020-03-30 17:11 | Emergency Department Report ---
ED Upper Extremity Inj HPI - General Chief Complaint: Extremity Injury, Upper Stated Complaint: RT WRIST INJURY Time Seen by Provider: 03/30/20 16:37 Source: patient Mode of arrival: Ambulatory Limitations: No Limitations - History of Present Illness Initial Comments: This is a 40-year-old female nontoxic, well nourished in appearance, no acute signs of distress presents to the ED with c/o of right wrist pain. Patient stated while at work a patient twisted her wrist. Patient denies any other trauma. Patient denies any numbness, tingling, fever, chills, nausea, vomiting, chest pain, shortness of breath, headache, stiff neck. Patient denies any joint swelling or joint redness. Patient stated has some decreased range of motion due to pain. Patient denies any allergies or significant past medical history. MD Complaint: Injury to:: right, wrist -: This morning Other Extremity Injury: Wrist: Right Severity scale (0 -10): 8 Improves With: immobilization Worsens With: movement of extremity Associated Symptoms: denies other symptoms. denies: weakness, numbness, neck pain, suspects foreign body, nausea/vomiting, heard/felt popping sensat - Related Data Previous Rx's Medication Instructions Recorded Last Taken Type Menthol [Biofreeze] 118 ml TP BID #1 gel..ml. 09/01/15 Unknown Rx traMADoL [Ultram 50 MG tab] 50 mg PO Q6HR PRN #21 tablet 09/01/15 Unknown Rx traMADoL [Ultram 50 MG tab] 50 mg PO Q6HR PRN #30 tablet 01/30/17 Unknown Rx Bacitracin Zinc Oint [Antibiotic 1 applicatio TP BID #1 tube 05/30/17 Unknown Rx Oint] HYDROcodone/APAP 5-325 [[place] 1 each PO Q8H PRN #9 tablet 05/30/17 Unknown Rx 5/325] Ibuprofen [Motrin] 600 mg PO Q8H PRN #30 tablet 05/30/17 Unknown Rx HYDROcodone/APAP 5-325 [[place] 1 each PO Q6HR PRN #10 tablet 09/07/18 Unknown Rx 5/325] Ondansetron [Zofran Odt] 4 mg PO Q8HR PRN #14 tab.rapdis 05/01/19 Unknown Rx traMADoL [Ultram 50 MG tab] 50 mg PO Q4HR PRN #14 tablet 05/01/19 Unknown Rx Naproxen 500 mg PO Q12H PRN #20 tablet 10/28/19 Unknown Rx Naproxen [Naprosyn] 500 mg PO BID #20 tablet 02/01/20 Unknown Rx Ibuprofen [Motrin] 800 mg PO Q8HR PRN #30 tablet 03/11/20 Unknown Rx Butalb/Acetamin/Caff 50-325-40 1 - 2 tab PO Q6HR PRN #15 tab 03/15/20 Unknown Rx [Fioricet 50-325-40] Cyclobenzaprine [Flexeril 10 MG 10 mg PO QHS PRN #10 tablet 03/15/20 Unknown Rx TAB] Ibuprofen [Motrin 800 MG tab] 800 mg PO Q8HR PRN #30 tablet 03/15/20 Unknown Rx Ondansetron [Zofran ODT TAB] 4 mg PO Q6HR PRN #20 tab.rapdis 03/15/20 Unknown Rx Naproxen 500 mg PO Q12H PRN #12 tablet 03/30/20 Unknown Rx Allergies Allergy/AdvReac Type Severity Reaction Status Date / Time No Known Allergies Allergy Verified 09/07/18 10:29 ED Review of Systems ROS: Stated complaint: RT WRIST INJURY Other details as noted in HPI Constitutional: denies: chills, fever Eyes: denies: eye pain, eye discharge, vision change ENT: denies: ear pain, throat pain Respiratory: denies: cough, shortness of breath, wheezing Cardiovascular: denies: chest pain, palpitations Endocrine: no symptoms reported Gastrointestinal: denies: abdominal pain, nausea, diarrhea Genitourinary: denies: urgency, dysuria, discharge Musculoskeletal: denies: back pain, joint swelling, arthralgia Skin: denies: rash, lesions Neurological: denies: headache, weakness, paresthesias Psychiatric: denies: anxiety, depression Hematological/Lymphatic: denies: easy bleeding, easy bruising ED Past Medical Hx - Past Medical History Previous Medical History?: Yes Hx Psychiatric Treatment: Yes (Depression) Additional medical history: hypothyroid - Surgical History Past Surgical History?: Yes Additional Surgical History: X 2 - Social History Smoking Status: Former Smoker Substance Use Type: None - Medications Home Medications: Home Medications Medication Instructions Recorded Confirmed Last Taken Type Menthol [Biofreeze] 118 ml TP BID #1 gel..ml. 09/01/15 Unknown Rx traMADoL [Ultram 50 MG tab] 50 mg PO Q6HR PRN #21 tablet 09/01/15 Unknown Rx traMADoL [Ultram 50 MG tab] 50 mg PO Q6HR PRN #30 tablet 01/30/17 Unknown Rx Bacitracin Zinc Oint [Antibiotic 1 applicatio TP BID #1 tube 05/30/17 Unknown Rx Oint] HYDROcodone/APAP 5-325 [[place] 1 each PO Q8H PRN #9 tablet 05/30/17 Unknown Rx 5/325] Ibuprofen [Motrin] 600 mg PO Q8H PRN #30 tablet 05/30/17 Unknown Rx HYDROcodone/APAP 5-325 [[place] 1 each PO Q6HR PRN #10 tablet 09/07/18 Unknown Rx 5/325] Ondansetron [Zofran Odt] 4 mg PO Q8HR PRN #14 tab.rapdis 05/01/19 Unknown Rx traMADoL [Ultram 50 MG tab] 50 mg PO Q4HR PRN #14 tablet 05/01/19 Unknown Rx Naproxen 500 mg PO Q12H PRN #20 tablet 10/28/19 Unknown Rx Naproxen [Naprosyn] 500 mg PO BID #20 tablet 02/01/20 Unknown Rx Ibuprofen [Motrin] 800 mg PO Q8HR PRN #30 tablet 03/11/20 Unknown Rx Butalb/Acetamin/Caff 50-325-40 1 - 2 tab PO Q6HR PRN #15 tab 03/15/20 Unknown Rx [Fioricet 50-325-40] Cyclobenzaprine [Flexeril 10 MG 10 mg PO QHS PRN #10 tablet 03/15/20 Unknown Rx TAB] Ibuprofen [Motrin 800 MG tab] 800 mg PO Q8HR PRN #30 tablet 03/15/20 Unknown Rx Ondansetron [Zofran ODT TAB] 4 mg PO Q6HR PRN #20 tab.rapdis 03/15/20 Unknown Rx Naproxen 500 mg PO Q12H PRN #12 tablet 03/30/20 Unknown Rx ED Physical Exam - General Limitations: No Limitations General appearance: alert, in no apparent distress - Head Head exam: Present: atraumatic, normocephalic - Eye Eye exam: Present: normal appearance - Neck Neck exam: Present: normal inspection, full ROM - Respiratory Respiratory exam: Absent: respiratory distress - Cardiovascular Cardiovascular Exam: Present: regular rate - Extremities Exam Extremities exam: Present: normal inspection, full ROM, tenderness, normal ca pillary refill. Absent: joint swelling - Expanded Upper Extremity Exam Right General: Present: normal inspection Shoulder Exam: Present: normal inspection, full ROM. Absent: tenderness, swelling Upper Arm exam: Present: normal inspection, full ROM. Absent: tenderness, swelling Elbow exam: Present: normal inspection, full ROM. Absent: tenderness, swelling Forearm Wrist exam: Present: full ROM, tenderness. Absent: swelling, abrasion, laceration, ecchymosis, deformity, crepidus, dislocation, erythema, tenderness over anatomical snuff box, pain with axial thumb loading Hand Wrist exam: Present: normal inspection, full ROM. Absent: tenderness, swelling Vascular: Present: normal capillary refill. Absent: vascular compromise (Neurovascular within normal limits) - Back Exam Back exam: Present: normal inspection, full ROM - Neurological Exam Neurological exam: Present: alert, oriented X3, normal gait - Psychiatric Psychiatric exam: Present: normal affect, normal mood - Skin Skin exam: Present: warm, dry, intact, normal color. Absent: rash ED Course Vital Signs 03/30/20 16:27 Temperature 98.9 F Pulse Rate 89 Respiratory 16 Rate Blood Pressure 114/76 [Left] O2 Sat by Pulse 98 Oximetry - Reevaluation(s) Reevaluation #1: 03/30/20 17:12 Patient is speaking in full sentences with no signs of distress noted. ED Medical Decision Making - Radiology Data Referring Physician: GALLO YOUSIF Patient Name: KALIE PETERSON Date of : 1980 Sex: Female Report Date: 2020-03-30 Report Status: Finalized [address] [address] XRay Report Signed Patient: KALIE PETERSON MR#: [id number] : 1980 Acct:[id number] Age/Sex: 40 / F ADM Date: 03/30/20 Loc: ED Attending Dr: Ordering Physician: GALLO YOUSIF NP Date of Service: 03/30/20 Procedure(s): XR wrist 3+V RT Accession Number(s): [id number] cc: GALLO YOUSIF NP Fluoro Time In Minutes: RIGHT WRIST 4 VIEWS INDICATION / CLINICAL INFORMATION: wrist pain. COMPARISON: None available. FINDINGS: A small cyst is seen in the scaphoid. No other significant skeletal abnormality is identified. Signer Name: Gallo Sykes MD FACR Signed: 03/30/2020 5:01 PM Workstation Name: [id number] Transcribed By: [place] Dictated By: Gallo Sykes MD Electronically Authenticated By: Gallo Sykes MD Signed Date/Time: 03/30/201700 DD/ 00 TD/TT: - Medical Decision Making This is a 40-year-old female that presents with right wrist strain. Patient is stable and was examined by me. I referred patient to an orthopedic doctor for further evaluation for possible MRI. X-ray has been obtained and dictated by the radiologist. Patient is notified of the x-ray report with noted by the patient. Patient received a wrist immobilize for pain comfort. Patient was instructed to RICE therapy. Patient received Motrin for pain. Patient is discharged with Motrin. At time of discharge, the patient does not seem toxic or ill in appearance. No acute signs of distress noted. Patient agrees to discharge treatment plan of care. No further questions noted by the patient. Critical care attestation.: If time is entered above; I have spent that time in minutes in the direct care of this critically ill patient, excluding procedure time. ED Disposition Clinical Impression: Strain of right wrist Qualifiers: Encounter type: initial encounter Qualified Code(s): S66.911A - Strain of unspecified muscle, fascia and tendon at wrist and hand level, right hand, initial encounter Disposition: - TO HOME OR SELFCARE Is pt being admited?: No Does the pt Need Aspirin: No Condition: Stable Instructions: Wrist Injury (ED), RICE Therapy (ED) Additional Instructions: Follow-up with a orthopedic doctor in 3-5 days or if symptoms worsen and continue return to emergency room as soon as possible. No physical activity that extremity until cleared by orthopedic doctor Prescriptions: Naproxen 500 mg PO Q12H PRN #12 tablet PRN Reason: Pain , Severe (7-10) Referrals: PRIMARY CARE, [Primary Care Provider] - 3-5 Days ANANDA PHELAN MD [Staff Physician] - 3-5 Days Forms: Work/School Release Form(ED)
== END 2020-03-30 18:47 | disposition home or self-care (01) ==
LOC: ED 16:03
DX: S66.911A Strain of unspecified muscle, fascia and tendon at wrist and hand level, right hand, initial encounter (principal); F32.89 Other specified depressive episodes; E05.00 Thyrotoxicosis with diffuse goiter without thyrotoxic crisis or storm; F17.200 Nicotine dependence, unspecified, uncomplicated; Z87.891 Personal history of nicotine dependence; Z98.890 Other specified postprocedural states; Z79.899 Other long term (current) drug therapy; X50.1XXA Overexertion from prolonged static or awkward postures, initial encounter; Y93.89 Activity, other specified; Y92.89 Other specified places as the place of occurrence of the external cause; Y99.0 Civilian activity done for income or pay

== ENCOUNTER 2020-10-02 20:49 | Emergency (ER) | payer BC ==
[2020-10-02 22:23] VITALS: BP 154/93
[2020-10-03] MEDS ORDERED: LIDOCAINE-MPF (1%) 10 MG/1 ML VIAL 5 ML INFILTRATI ONE (00:27)
[2020-10-03] MEDS ORDERED: IBUPROFEN 600 MG TAB PO ONE (00:27)
[2020-10-03] MEDS ORDERED: HYDROcodone/ACETAMINOPHEN 5-325 MG TAB PO ONE (00:27)
[2020-10-03] MEDS ORDERED: ONDANSETRON 4 MG ODT TAB PO ONE (00:27)
--- NOTE | 2020-10-03 04:47 | Emergency Department Report ---
ED Upper Extremity Inj HPI - General Chief Complaint: Laceration/Recheck/Suture Stated Complaint: LT FINGER INJURY/VERY DEEP CUT Source: patient Mode of arrival: Ambulatory Limitations: No Limitations - History of Present Illness Initial Comments: Patient is a 40-year-old female with no past medical history presents to the ED with complaint of acute onset persistent severe painful bleeding distal left middle finger laceration after she accidentally sliced off distal left middle finger when cutting some pieces of material on the fence about 6 hours prior to arrival in the ED. Patient states that she initially went to an urgent care clinic who after evaluating her advised to come to the ED for further evaluation since they were not competent enough to repair the wound. Patient states that she is not up-to-date with her tetanus vaccinations. Patient however denies fever, chills, numbness and tingling or weakness of left hand or left middle finger, nausea and vomiting, dizziness or syncope or fall. MD Complaint: Injury to:: left, finger (middle finger laceration, pain and bleeding) -: Sudden, hour(s) (6) Other Extremity Injury: Fingers: Left (distal left middle finger laceration and bleeding with pain) Other Injuries: head Severity scale (0 -10): 7 Improves With: none Worsens With: movement of extremity Context: laceration, injury Associated Symptoms: denies other symptoms. denies: weakness, numbness, neck pain, suspects foreign body, nausea/vomiting, heard/felt popping sensat - Related Data Previous Rx's Medication Instructions Recorded Last Taken Type Menthol [Biofreeze] 118 ml TP BID #1 gel..ml. 09/01/15 Unknown Rx traMADoL [Ultram 50 MG tab] 50 mg PO Q6HR PRN #21 tablet 09/01/15 Unknown Rx traMADoL [Ultram 50 MG tab] 50 mg PO Q6HR PRN #30 tablet 01/30/17 Unknown Rx Bacitracin Zinc Oint [Antibiotic 1 applicatio TP BID #1 tube 05/30/17 Unknown Rx Oint] HYDROcodone/APAP 5-325 [[place] 1 each PO Q8H PRN #9 tablet 05/30/17 Unknown Rx 5/325] HYDROcodone/APAP 5-325 [[place] 1 each PO Q6HR PRN #10 tablet 09/07/18 Unknown Rx 5/325] Ondansetron [Zofran Odt] 4 mg PO Q8HR PRN #14 tab.rapdis 05/01/19 Unknown Rx traMADoL [Ultram 50 MG tab] 50 mg PO Q4HR PRN #14 tablet 05/01/19 Unknown Rx Naproxen 500 mg PO Q12H PRN #20 tablet 10/28/19 Unknown Rx Naproxen [Naprosyn] 500 mg PO BID #20 tablet 02/01/20 Unknown Rx Ibuprofen [Motrin] 800 mg PO Q8HR PRN #30 tablet 03/11/20 Unknown Rx Butalb/Acetamin/Caff 50-325-40 1 - 2 tab PO Q6HR PRN #15 tab 03/15/20 Unknown Rx [Fioricet 50-325-40] Cyclobenzaprine [Flexeril 10 MG 10 mg PO QHS PRN #10 tablet 03/15/20 Unknown Rx TAB] Ibuprofen [Motrin 800 MG tab] 800 mg PO Q8HR PRN #30 tablet 03/15/20 Unknown Rx Ondansetron [Zofran ODT TAB] 4 mg PO Q6HR PRN #20 tab.rapdis 03/15/20 Unknown Rx Naproxen 500 mg PO Q12H PRN #12 tablet 03/30/20 Unknown Rx Acetaminophen/Codeine [Tylenol 1 tab PO Q6H PRN #10 tab 10/03/20 Unknown Rx /Codeine # 3 tab] Ibuprofen [Motrin 600 MG tab] 600 mg PO Q8H PRN #30 tablet 10/03/20 Unknown Rx cephALEXin [Keflex] 500 mg PO Q12HR #20 cap 10/03/20 Unknown Rx Allergies Allergy/AdvReac Type Severity Reaction Status Date / Time No Known Allergies Allergy Verified 09/07/18 10:29 ED Review of Systems ROS: Stated complaint: LT FINGER INJURY/VERY DEEP CUT Other details as noted in HPI ED Past Medical Hx - Past Medical History Previous Medical History?: Yes Hx Psychiatric Treatment: Yes (Depression) Additional medical history: hypothyroid - Surgical History Additional Surgical History: X 2 - Social History Smoking Status: Former Smoker Substance Use Type: None - Medications Home Medications: Home Medications Medication Instructions Recorded Confirmed Last Taken Type Menthol [Biofreeze] 118 ml TP BID #1 gel..ml. 09/01/15 Unknown Rx traMADoL [Ultram 50 MG tab] 50 mg PO Q6HR PRN #21 tablet 09/01/15 Unknown Rx traMADoL [Ultram 50 MG tab] 50 mg PO Q6HR PRN #30 tablet 01/30/17 Unknown Rx Bacitracin Zinc Oint [Antibiotic 1 applicatio TP BID #1 tube 05/30/17 Unknown Rx Oint] HYDROcodone/APAP 5-325 [[place] 1 each PO Q8H PRN #9 tablet 05/30/17 Unknown Rx 5/325] HYDROcodone/APAP 5-325 [[place] 1 each PO Q6HR PRN #10 tablet 09/07/18 Unknown Rx 5/325] Ondansetron [Zofran Odt] 4 mg PO Q8HR PRN #14 tab.rapdis 05/01/19 Unknown Rx traMADoL [Ultram 50 MG tab] 50 mg PO Q4HR PRN #14 tablet 05/01/19 Unknown Rx Naproxen 500 mg PO Q12H PRN #20 tablet 10/28/19 Unknown Rx Naproxen [Naprosyn] 500 mg PO BID #20 tablet 02/01/20 Unknown Rx Ibuprofen [Motrin] 800 mg PO Q8HR PRN #30 tablet 03/11/20 Unknown Rx Butalb/Acetamin/Caff 50-325-40 1 - 2 tab PO Q6HR PRN #15 tab 03/15/20 Unknown Rx [Fioricet 50-325-40] Cyclobenzaprine [Flexeril 10 MG 10 mg PO QHS PRN #10 tablet 03/15/20 Unknown Rx TAB] Ibuprofen [Motrin 800 MG tab] 800 mg PO Q8HR PRN #30 tablet 03/15/20 Unknown Rx Ondansetron [Zofran ODT TAB] 4 mg PO Q6HR PRN #20 tab.rapdis 03/15/20 Unknown Rx Naproxen 500 mg PO Q12H PRN #12 tablet 03/30/20 Unknown Rx Acetaminophen/Codeine [Tylenol 1 tab PO Q6H PRN #10 tab 10/03/20 Unknown Rx /Codeine # 3 tab] Ibuprofen [Motrin 600 MG tab] 600 mg PO Q8H PRN #30 tablet 10/03/20 Unknown Rx cephALEXin [Keflex] 500 mg PO Q12HR #20 cap 10/03/20 Unknown Rx ED Physical Exam - General Limitations: No Limitations ED Course Vital Signs 10/02/20 22:20 Temperature 98.0 F Pulse Rate 89 Respiratory 18 Rate Blood Pressure 154/93 [Right] O2 Sat by Pulse 100 Oximetry - Laceration /Wound Repair Left Distal Finger Wound Location: upper extremity (distal left middle finger) Wound Length (cm): 3 Wound's Depth, Shape: superficial, linear Wound Explored: contaminated Irrigated w/ Saline (ccs): 200 Betadine Prep?: Yes Anesthesia: 1% Lidocaine Volume Anesthetic (ccs): 4 Wound Debrided: extensive Wound Repaired With: sutures Suture Size/Type: 4:0, proline Number of Sutures: 9 Layer Closure?: No Sterile Dressing Applied?: No Progress: The left middle finger laceration wound was cleaned thoroughly with normal saline, Betadine solution and local anesthetic lidocaine 1% solution infiltrated into the wound. When anesthesia was fully achieved, the wound was sutured per protocol with Prolene 4-0 sutures. Patient tolerated the procedure well. The wound was then dressed appropriately and the patient will discharge home on pain medications and prophylactic antibiotics and was advised to return to the ED immediately if symptoms get worse. Patient was also advised to follow-up with her primary care physician in 7 to 10 days for reevaluation. Patient was also advised return to the ED or to her primary care physician in 12 to 14 days for suture removal. ED Medical Decision Making - Medical Decision Making This is a 40-year-old female with no past medical history presents to the ED with complaint of acute onset persistent severe painful bleeding distal left middle finger laceration after she accidentally sliced off distal left middle finger when cutting some pieces of material on the fence about 6 hours prior to arrival in the ED. Patient states that she initially went to an urgent care clinic who after evaluating her advised to come to the ED for further evaluation since they were not competent enough to repair the wound. Patient states that she is not up-to-date with her tetanus vaccinations. In the ED, patient is alert and oriented x3 and is not in any distress but appears to be in pain, and is hemodynamically stable. Patient was treated for pain in the ED and also given booster tetanus vaccination. The wound was cleaned thoroughly with normal saline and Betadine solution and the entire left middle finger was anesthetized through a digital block with lidocaine 1% solution. When anesthesia was fully achieved, the wound was sutured per protocol with Prolene 4-0 suture and the patient tolerated the procedure well. Neosporin ointment was then padded to the wound and the wound dressed appropriately with a nonstick gauze, 4 x 4 gauzes and Kerlix. On reevaluation, patient is neurovascularly intact on the left hand and left middle finger. Patient was therefore discharged home on pain medications and prophylactic antibiotics and was advised to follow-up with her primary care physician in 7 to 10 days for reevaluation or return to the ED immediately if symptoms get worse. Patient was also advised to return to the ED or to her primary care physician in 12 to 14 days for suture removal. - Differential Diagnosis finger laceration; finger abrasion; finger puncture wound Critical care attestation.: If time is entered above; I have spent that time in minutes in the direct care of this critically ill patient, excluding procedure time. ED Disposition Clinical Impression: Laceration of left middle finger w/o foreign body w/o damage to nail Qualifiers: Encounter type: initial encounter Qualified Code(s): S61.213A - Laceration without foreign body of left middle finger without damage to nail, initial encounter Disposition: DC-01 TO HOME OR SELFCARE Is pt being admited?: No Does the pt Need Aspirin: No Condition: Stable Instructions: Sutured Wound Care, [id number], Laceration Care, Adult, [id number] Additional Instructions: Take medication with food, drink plenty of fluids and follow-up with your primary care physician in 7 to 10 days for reevaluation. Return to the ED immediately if symptoms get worse. Otherwise return to the ED or to your primary care physician in 12 to 14 days for suture removal. Prescriptions: cephALEXin [Keflex] 500 mg PO Q12HR #20 cap Ibuprofen [Motrin 600 MG tab] 600 mg PO Q8H PRN #30 tablet PRN Reason: Pain Acetaminophen/Codeine [Tylenol /Codeine # 3 tab] 1 tab PO Q6H PRN #10 tab PRN Reason: Pain , Severe (7-10) Referrals: ANANDA PHELAN MD [Staff Physician] - 7-10 days Forms: Work/School Release Form(ED) Time of Disposition: 04:44 Print Language: TURKISH
== END 2020-10-03 05:00 | disposition home or self-care (01) ==
LOC: ED 20:49
DX: S61.213A Laceration without foreign body of left middle finger without damage to nail, initial encounter (principal); F32.9 Major depressive disorder, single episode, unspecified; E03.9 Hypothyroidism, unspecified; Z87.891 Personal history of nicotine dependence; Z79.899 Other long term (current) drug therapy; W26.0XXA Contact with knife, initial encounter; Y93.89 Activity, other specified; Y92.89 Other specified places as the place of occurrence of the external cause; Y99.8 Other external cause status
CPT/HCPCS: 99282; Q0162

== ENCOUNTER 2021-10-02 09:18 | Outpatient (CLI) | payer BC ==
[2021-10-02 09:54] LABS: Basophils % (Auto) 0.7 % (0.0-1.8); Eosinophils # (Auto) 0.2 K/mm3 (0.0-0.4); Eosinophils % (Auto) 3.8 % (0.0-4.3); Hematocrit 38.4 % (30.3-42.9); Hemoglobin 12.9 gm/dl (10.1-14.3); Lymphocytes # (Auto) 1.8 K/mm3 (1.2-5.4); Lymphocytes % (Auto) 30.7 % (13.4-35.0); Mean Corpuscular HGB Conc 34 % (30-34); Mean Corpuscular Volume 87 fl (79-97); Monocytes # (Auto) 0.6 K/mm3 (0.0-0.8); Monocytes % (Auto) 10.5 % (0.0-7.3); Red Blood Count 4.43 M/mm3 (3.65-5.03); Red Cell Distribution Width 13.4 % (13.2-15.2)
[2021-10-02 09:58] LABS: Platelet Count 267 K/mm3 (140-440)
[2021-10-02 10:13] LABS: Alanine Aminotransferase 15 units/L (7-56); BUN/Creatinine Ratio 29; Blood Urea Nitrogen 29 mg/dL (7-17); Calcium 9.9 mg/dL (8.4-10.2); Chol/HDL Ratio 4.82 %; HDL Cholesterol 45 mg/dL (40-59); Hemolysis Index 51; LDL Cholesterol,Direct 148 mg/dL (50-130)
[2021-10-06 12:39] LABS: Vitamin D, 25-OH, D2 <4 ng/mL
== END 2021-10-02 09:19 | disposition home or self-care (01) ==
LOC: LAB 09:18
PROVIDERS: ATTEND Internal Medicine
DX: Z00.00 Encounter for general adult medical examination without abnormal findings (principal); E03.9 Hypothyroidism, unspecified; E66.9 Obesity, unspecified
CPT/HCPCS: 36415; 80053; 80061; 82306; 84443; 85025